=== PATIENT | female | born 1945 | race Caucasian/White ===

== ENCOUNTER → 2018-04-16 14:17 | Outpatient (CLI) | payer MEDICARE, SELFPAY ==
[2018-04-16 16:02] LABS: Thyroid Stim Hormone (TSH) 1.91 uIU/mL (0.358-3.74)
== END ==
PROVIDERS: Family Provider Family Medicine; PCP Family Medicine; Visit Provider Family Medicine
DX: E03.9 Hypothyroidism, unspecified (principal)
CPT/HCPCS: 36415; 84436; 84443

== ENCOUNTER 2018-04-28 14:19 | Inpatient (IN) | payer MEDICARE, SELFPAY ==
[2018-04-28] VITALS (14 sets, daily range): BP systolic 156–218; BP diastolic 65–113; PULSE 58–87; RESP 11–24; TEMP 36.6–36.9; O2SAT 95–98; BMI 31.8; BMI 32.1
--- NOTE | 2018-04-28 14:25 | NURSING ---
NO OLD EKGS
[2018-04-28 14:31] LABS: Bedside Glucose 101 mg/dL (70-110)
--- NOTE | 2018-04-28 15:05 | CT_ITS ---
STUDY: CT BRAIN WITHOUT CONTRAST REASON FOR EXAM: Female, 72 years old. Headache for 2 days dizziness migraines RADIATION DOSAGE (If Supplied By Facility): CTDIvol = ( 44.99 ) mGy, DLP = ( 745.49 ) mGycm TECHNIQUE: Transaxial CT imaging of the brain was performed without administration of intravenous contrast material. Individualized dose optimization techniques were used for this CT. COMPARISON: None. FINDINGS: Normal soft tissue structures. Normal calvarium. There is calcification of the cavernous carotid arteries. There is mild cerebral atrophy with widening of the extra-axial spaces and ventricular dilatation. There are areas of decreased attenuation within the white matter tracts of the supratentorial brain, consistent with microvascular disease changes. There is a punctate low attenuation within the right putamen compatible with old lacunar infarct. Normal brainstem. There is mild cerebellar atrophy. There is no intracranial hemorrhage. There are no findings of an acute ischemic infarction. Normal visualized paranasal sinuses. CT/Brain/Head without Contrast IMPRESSION: Mild atrophy. No visualized evidence of acute hemorrhage infarct or edema. Electronically Signed: Unique Lynch MD at 15:48 EDT Tel , Service support ,
--- NOTE | 2018-04-28 15:05 | EKG12_ITS ---
Test Reason : NEURO Blood Pressure : / mmHG Vent. Rate : 079 BPM Atrial Rate : 079 BPM P-R Int : 176 ms QRS Dur : 086 ms QT Int : 396 ms P-R-T Axes : 060 -32 049 degrees QTc Int : 454 ms Normal sinus rhythm Possible Left atrial enlargement Left axis deviation Poor R wave progression Abnormal ECG Confirmed by ABELINO BENÍTEZ, JOSE ANTONIO ([id number]), editorial project manager KYAW RUIZ ([id number] on 05/01/2018 10:08:56 AM Referred By: Queta Veloz Confirmed By:JOSE ANTONIO ROCA MD
--- NOTE | 2018-04-28 15:11 | ED.VISSUMM ---
- ER Visit Summary Date of Service: 04/28/18 Chief Complaint: Headache, weakness History of Present Illness: The patient is a 72 F who reports onset of migraine headache 5 days ago located behind her eyes. She is a history of migraines but states it has been approximately 20 years since she had a migraine. She reports feeling mild nausea since that time. Headache has been waxing and waning since that time, seeming to improve when she sleeps. She noted a numb sensation to her left leg on the . She states her left arm feels like it is going to fall asleep, but is not numb at this time. She did have some pain to her right face yesterday that is resolved. She now feels a tingling sensation around her lips, worse in the left side. She has not had any trouble swallowing. She denies any problems with her speech. Patient does admit to a fall on the but denies striking her head. Physical Examination: Vital signs in triage include a blood pressure of 218/96, temperature 97.8, heart rate 74, respiratory rate 17, pulse ox 98% on room air. When I enter the room for her exam her blood pressure is 153/80. Head neck examination is grossly unremarkable. She does complain of a black spot over the lateral vision of her left eye only. Pupils are equal and reactive and extraocular movements are intact. Heart is regular rate and rhythm. Lung sounds are clear. Abdomen is soft and nontender. Neuro exam reveals an NIH score of 1. She receives this point for mild drift of her left arm on testing. Test Results: CBC was normal white count with hemoglobin is 16.9 and hematocrit of 48.2. Chemistry studies are significant for BUN of 17 and a creatinine 1.23. Coags normal. CT head shows mild atrophy with no visualized evidence of acute hemorrhage, infarct, or edema. 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 Recommend MRI. CT of the neck shows normal carotid and vertebral arteries. Emergency Department Course and Treatment: Patient's blood pressure has remained in the 150-170 systolic range without any further intervention. I discussed with her the possibility of her symptoms being caused by migraine, blood pressure, or stroke. Patient will be admitted for further workup and evaluation. Treatment Plan: [] Disposition: Admit Impression: 1. Left arm drift 2. Migraine 3. Hypertension This note was generated with Dragon dictation software. It may contain incorrect words, spelling, and punctuation that were not noted in review of the chart prior to signing ED Disposition - Plan for ED Patient: Chief Complaint: Numb/Ting Referrals: Carol Vargas MD [Primary Care Provider] -
[2018-04-28 15:18] LABS: Absolute Neutrophil Count 7.7 X10^3/uL (2.0-7.7); Basophil# 0.03 X10^3/uL; Basophil% 0.3 % (0-1); Eosinophil# 0.08 X10^3/uL; Eosinophils% 0.8 % (0-5); Hematocrit 48.2 % (37-47); Hemoglobin 16.9 g/dl (12.0-15.0); Lymphocyte % 19.3 % (19-41); Mean Corp Hgb Conc 35.1 g/gl (32-36); Mean Corpuscular Hgb 30.7 pg (27.0-32.0); Mean Corpuscular Volume 87.5 fL (81-99); Mean Platelet Vol. 9.7 fl (6.2-12.0); Monocyte# 0.53 X10^3/uL; Monocyte% 5.1 % (0-10); Neutrophil % 74.4 % (47-70); Platelet Count 300 K/mm3 (150-450); RBC Distribution Width CV 12.8 % (11.6-14.6); RBC Distribution Width SD 41.4 fl (35.1-43.9); Red Blood Count 5.51 M/mm3 (4.2-5.4); White Blood Count 10.4 K/mm3 (4.4-11.0)
[2018-04-28 15:19] LABS: POSITIVE COUNT NO; POSITIVE DIFFERENTIAL NO; POSITIVE MORPHOLOGY NO
--- NOTE | 2018-04-28 15:29 | RAD_ITS ---
STUDY: X-RAY CHEST REASON FOR EXAM: Female, 72 years old. Headache TECHNIQUE: Single frontal view of the chest. COMPARISON: None. FINDINGS: There is no focal consolidation. Normal size heart. Normal mediastinum and wilfrid. Normal visualized pulmonary arteries. Normal visualized aortic arch and descending thoracic aorta. There are diffuse degenerative changes of the visualized thoracic spine. Normal visualized ribs, clavicles, and shoulders. There is no demonstrated abnormality of the visualized soft tissue structures of the upper abdomen. RAD/Chest 1 View IMPRESSION: No acute cardiopulmonary process. Electronically Signed: Lisa Siu MD at 16:10 EDT Tel , Service support ,
[2018-04-28 15:33] LABS: Anion Gap 8 (5-15); BUN 17 mg/dL (7-18); BUN/Creat Ratio 13.8 RATIO (10-20); Calcium,Total 9.1 mg/dL (8.5-10.1); Chloride 105 mmol/L (98-107); Creatinine, Serum 1.23 mg/dL (0.55-1.02); EST Glomerular Filtration Rate 45 mL/min (>60); Est Glom Filt Rate - Afr Amer 55 mL/min (>60); Estimated Creatinine Clearance 33.19 ml/min; Glucose 112 mg/dL (74-106); Potassium 3.9 mmol/L (3.5-5.1); Sodium Level 138 mmol/L (136-145)
--- NOTE | 2018-04-28 15:59 | CT_ITS ---
STUDY: CTA NECK WITH CONTRAST REASON FOR EXAM: Female, 72 years old. Sided weakness RADIATION DOSAGE (If Supplied By Facility): CTDIvol = ( 18.39 ) mGy, DLP = ( 721.79 ) mGycm TECHNIQUE: CT angiography with multi-detector data acquisition was performed from the aortic arch to the skull base following intravenous administration of 100 ml of Isovue 370 contrast. MIP images were reconstructed from the axial data set. Post-processing of the angiographic images was performed, with multiplanar reformation and 3D reconstruction. Individualized dose optimization techniques were used for this CT. COMPARISON: None. FINDINGS: AORTIC ARCH: Is minimal calcification of the visualized aortic arch. There is a common takeoff of the left subclavian and vertebral artery. RIGHT CAROTID ARTERIES: There is atherosclerotic tortuous elongation of the right common carotid artery. Normal right common carotid bulb. Normal origin of the right internal carotid (ICA) artery without a hemodynamically significant stenosis. Normal visualized cervical portion of the right internal carotid artery. Normal origin of the right external carotid artery (ECA). LEFT CAROTID ARTERIES: Normal left common carotid artery (CCA). Normal left common carotid bulb. Normal origin of the left internal carotid (ICA) artery without a hemodynamically significant stenosis. Normal visualized cervical portion of the left internal carotid artery. Normal origin of the left external carotid artery (ECA). VERTEBRAL ARTERIES: Normal bilateral vertebral arteries. There is visualized multilevel degenerative changes in the cervical spine. There is multilevel posterior ligamentous osteophyte formation with effacement of the anterior thecal sac. Especially seen at the level of C4. There is a broad disc osteophyte complex C5-C6 with moderate neural foraminal narrowing. There is posterior osteophytosis C5-C6. There is visualized groundglass opacity within the lung apices. CT/CTA Neck W/WO Contrast IMPRESSION: Normal bilateral cervical carotid and vertebral arteries. Degenerative change of the cervical spine. Electronically Signed: Unique Lynch MD at 17:28 EDT Tel , Service support ,
[2018-04-28 16:12] LABS: International Normalized Ratio 1.1; Prothrombin Time (Protime)PT. 13.9 SECONDS (11.7-14.9)
[2018-04-28 16:13] LABS: Partial Thromboplast Time 27.7 Seconds (24.1-36.2)
[2018-04-28] MEDS: 0.9% Normal Saline 1,000 ML 100 ML IV (16:14)
--- NOTE | 2018-04-28 16:35 | CT_ITS ---
STUDY: CTA OF THE BRAIN REASON FOR EXAM: Female, 72 years old. Left-sided weakness dizziness RADIATION DOSAGE (If Supplied By Facility): CTDIvol = ( ) mGy, DLP = ( ) mGycm TECHNIQUE: CT angiography was performed with a multi-detector CT scanner. Data acquisition was obtained from the skull base through the vertex following intravenous administration of ml of . MIP images were reconstructed from the axial data set. Post-processing of the angiographic images was performed, with multiplanar reformation and 3D reconstruction. Individualized dose optimization techniques were used for this CT. COMPARISON: CT scan head April 28, 2018 FINDINGS: Normal bilateral petrous carotid arteries. There is calcified plaque formation of the right cavernous carotid artery, without a cross-sectional luminal stenosis. There is calcified plaque formation of the left cavernous carotid artery, without a cross-sectional luminal stenosis. Normal right A1 segments of the anterior cerebral artery. Normal left A1 segments of the anterior cerebral artery. There is non-visualization of the anterior communicating artery (ACOM). Normal bilateral A2 segments of the anterior cerebral arteries. Normal right M1 and M2 segments of the middle cerebral arteries, with a normal M1 bifurcation. Normal left M1 and M2 segments of the middle cerebral arteries, with a normal M1 bifurcation. Normal right posterior communicating artery (PCOM). Normal left posterior communicating artery (PCOM). Normal bilateral vertebral arteries. Normal basilar artery with a normal basilar bifurcation. The visualized bilateral superior cerebellar (SCA) arteries are normal. The mid segment of the right side SOCIAL INSURANCE ADMINISTRATOR is either hypoplastic and not well visualized on 3-D reconstructed images. The proximal SOCIAL INSURANCE ADMINISTRATOR and distal right-sided PTC is visualized. There is a diminutive but patent appearing left-sided SOCIAL INSURANCE ADMINISTRATOR. There is no demonstrated aneurysm of the [place]. There is no demonstrated abnormality of the visualized brain. CT/CTA Head W/WO Contrast IMPRESSION: Hypoplastic versus possible mild stenosis of the mid right-sided SOCIAL INSURANCE ADMINISTRATOR. Given clinical history recommend consideration for follow-up MRI. Otherwise no evidence of visualized stenotic lesion no evidence of aneurysmal dilatation. Electronically Signed: Unique Lynch MD at 17:20 EDT Tel , Service support ,
--- NOTE | 2018-04-28 17:47 | HP.PCM_ITS ---
Problem List (1) Headache Status: Acute History of Present Illness Date of Admission: 04/28/18 Chief Complaint: headache The patient is a 72 year old F with a history of hypothyroidism and migraines. She last had a migraine about 15 years ago. She was admitted through the ED on 04/28/2018 with a complaint of 4-day history of headache. Headache was left- sided, associated with flashes of light. She thought was due to her migraine headaches and would get better. However the headache persisted and so she decided coming to the ED today. She denied any neck pain or photophobia, any chest pain, any blurred vision, any palpitations, any abdominal pain, any diarrhea vomiting. In the ED, blood pressure was found to be elevated, 218/96. Brain CT was negative for any acute intracranial pathology. Chemistry was significant for creatinine of 1.23 and CBC showed hemoglobin of 16.9. She is been admitted to be managed for hypertensive emergency. 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 Denies: Blurred vision, Double vision HEENT: Denies: Head Aches, Sinus Congestion, Sinus Drainage Cardiovascular: Denies: Chest Pain, Chest Pressure, Chest Tightness, Orthopnea, Palpitations, Paroxysmal Noc. Dyspnea, Syncope Respiratory: Denies: Cough, Shortness of breath at rest, Sputum production Gastrointestinal: Denies: Abdominal Pain, Nausea, Vomiting Genitourinary: Denies: Dysuria Musculoskeletal: Denies: Joint Pain, Joint Tenderness Skin: Denies: Rash, Wounds Neurological: Reports: Headaches - left sided. Denies: Blurred vision, Double vision, Focal weakness, Numbness, Tingling Psychiatric: Denies: Anxiety, Depression, Homicidal Ideations, Suicidal Ideations Hematologic/ Lymphatic: Denies: Easy Bruising, Easy Bleeding VTE Information - Inpt Only VTE Present on Admission: No VTE Pharm Prophylaxis ordered?: Yes Patient Problems: Active and Suspected Problems Headache (Acute) - Physical Exam General: Alert, Oriented x3, Cooperative, No apparent distress HEENT: Atraumatic, PERRLA, EOMI, Normocephalic Oral: Moist Mucosa Neck: Supple, No JVD, Negative Carotid Bruits Lungs: Clear to auscultation, Normal air movement, No rhonchi, No wheeze, No rales Cardiovascular: Regular rate, Regular Rhythm, Normal S1, Normal S2, No murmurs Abdomen: Bowel Sounds Present, Soft, Non Tender, Non-Distended, No Hepato- splenomegaly Extremities: No clubbing, No cyanosis, No edema, Capillary Refill Less than 3 Seconds Skin: No rashes, No breakdown Musculoskeletal: No Tenderness to Palpation of Joints or Extremities Lymphatic: No Cervical, Supraclavicular, or Inguinal Adenopathy Neurological: Cranial nerves II-XII grossly intact, Neuro grossly intact, Motor Exam 5/5 strength throughout Psych/Mental Status: Normal Affect, Appropriate, Alert and oriented to time, place, person, mood and affect Vital Signs Temp Pulse Resp BP Pulse Ox 97.8 F 83 24 H 167/78 H 96 04/28/18 14:21 04/28/18 16:30 04/28/18 16:30 04/28/18 16:30 04/28/18 16:30 Oxygen Delivery Method Room Air Weight: 179 lb 14.355 oz Body Mass Index (BMI) 31.8 Finger Stick Blood Glucose 101 Laboratory Tests Past 24 Hrs 04/28/18 04/28/18 04/28/18 14:45 14:45 14:45 WBC 10.4 RBC 5.51 H Hgb 16.9 H Hct 48.2 H MCV 87.5 MCH 30.7 MCHC 35.1 RDW 12.8 RDW Differential 41.4 Plt Count 300 MPV 9.7 Immature Gran % (Auto) 0.100 Neut % (Auto) 74.4 H Lymph % (Auto) 19.3 [place] % (Auto) 5.1 Eos % (Auto) 0.8 Baso % (Auto) 0.3 Absolute Neuts (auto) 7.7 Absolute Lymphs (auto) 2.00 Total Counted Not Reportable PT 13.9 INR 1.1 APTT 27.7 Sodium 138 Potassium 3.9 Chloride 105 Carbon Dioxide 25.0 Anion Gap 8 BUN 17 Creatinine 1.23 H Estim Creat Clear Calc 33.19 Est GFR (MDRD) Af Amer 55 L Est GFR (MDRD) Non-Af 45 L BUN/Creatinine Ratio 13.8 Glucose 112 H Calcium 9.1 Troponin I < 0.015 POC Glucose 04/28/18 14:27 POC Glucose [address] 04/28/18 15:05 IMPRESSION: Mild atrophy. No visualized evidence of acute hemorrhage infarct or edema. Electronically Signed: Unique Lynch MD at 15:48 EDT Tel , Service support , Chest X-Ray 04/28/18 15:29 IMPRESSION: No acute cardiopulmonary process. Electronically Signed: Lisa Siu MD at 16:10 EDT Tel , Service support , Neck CTA 04/28/18 15:59 IMPRESSION: Normal bilateral cervical carotid and vertebral arteries. Degenerative change of the cervical spine. 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 Given clinical history recommend consideration for follow-up MRI. Otherwise no evidence of visualized stenotic lesion no evidence of aneurysmal dilatation. Electronically Signed: Unique Lynch MD at 17:20 EDT Tel , Service support , Assessment/Plan All Active Problems Headache (Acute) 72-year-old female admitted with a complaint of 4-day history of left-sided headache. 1. Hypertensive emergency * admitted with elevated BP which peaked at 218/96mmhg * hasnt had a migrained headache in >10 years. * EKG showed no acute ST changes * CXR showed no acute cardiopulmonary process. * admit to PCU with telemetry * BP had come down to 167/79 at time of review * not on any hypertensives. * Will start on PO amlodipine 10mg daily and lisinopril 10mg daily * get 2D echo. * IV hydralazine 10mg q6prn * 2. Migraine headaches * Has not had a migraine headache and so many years. * CT brain: Mild atrophy with no visualized evidence of acute hemorrhage, infarct or edema. * CTA of the neck: Hypoplastic versus possible mild stenosis of the mid right MIXING MACHINE TENDER. MRI recommended. Otherwise no other lesion noted. * Give Tylenol as needed * 3. AK I: Creatinine is 1.23. Baseline not known. Will hydrate with half- normal saline and monitor. 4. Hypothyroidism: on synthroid. DVT prophylaxis: heparin Code status: * Patient and counseled extensively about different types of CODE STATUS including full code, DNR CCA and DNR CCA. Patient couldnt make up her mind about her code status, as she stated she had never thought about it. She said she didnt think she wanted to be resuscitated, but couldnt decide between DNRCC and DNRCCA. Wants more time to think about it and decide. Total [id number] time 20 minutes. Code Visit Inpatient E&M: 74265 Init Hosp L3 Procedures: 97270 Advncd Care Plan 30 Min
--- NOTE | 2018-04-28 17:48 | NURSING ---
DR MORGAN FOR DR KERN
--- NOTE | 2018-04-28 17:48 | NURSING ---
PCU MIGRAINE, HYPERTENSIVE EMERGENCY KORAM
[2018-04-28] MEDS: Lisinopril 10 MG Tablet PO (19:46)
[2018-04-28] MEDS: amLODIPine 10 MG Tablet PO (19:46)
[2018-04-28] MEDS: 0.45% Normal Saline 1,000 ML 60 ML IV (19:47)
[2018-04-28] MEDS: 0.9% NaCl Peripheral Flush Adult/Peds IV (21:20)
[2018-04-28] MEDS: Heparin Injection (Vial) 5,000 UNIT/ML VIAL 5000 UNIT SC (21:20)
[2018-04-29] VITALS (10 sets, daily range): BP systolic 114–145; BP diastolic 54–67; PULSE 56–75; RESP 15–18; TEMP 36.7–36.9; O2SAT 94–96
[2018-04-29] MEDS: Levothyroxine 50 MCG Tablet PO (05:02)
[2018-04-29] MEDS: Heparin Injection (Vial) 5,000 UNIT/ML VIAL 5000 UNIT SC ×3 (05:02→22:19)
[2018-04-29 07:07] LABS: Absolute Lymphocyte Count 3.17 X10^3/ul (0.83-4.51); Absolute Neutrophil Count 6.8 X10^3/uL (2.0-7.7); Basophil# 0.03 X10^3/uL; Basophil% 0.3 % (0-1); Eosinophil# 0.12 X10^3/uL; Eosinophils% 1.1 % (0-5); Hematocrit 44.4 % (37-47); Hemoglobin 14.9 g/dl (12.0-15.0); Lymphocyte # 3.17 X10^3/ul (4.0); Lymphocyte % 29.6 % (19-41); Mean Corp Hgb Conc 33.6 g/gl (32-36); Mean Corpuscular Volume 89.5 fL (81-99); Monocyte# 0.62 X10^3/uL; Monocyte% 5.8 % (0-10); Neutrophil # 6.75 X10^3/uL (2.7-7.7); Neutrophil % 63.1 % (47-70); Platelet Count 271 K/mm3 (150-450); RBC Distribution Width SD 41.9 fl (35.1-43.9); Red Blood Count 4.96 M/mm3 (4.2-5.4); White Blood Count 10.7 K/mm3 (4.4-11.0)
[2018-04-29 07:15] LABS: POSITIVE COUNT NO; POSITIVE DIFFERENTIAL NO; POSITIVE MORPHOLOGY NO
[2018-04-29 07:44] LABS: Anion Gap 12 (5-15); BUN 14 mg/dL (7-18); BUN/Creat Ratio 14.1 RATIO (10-20); Calcium,Total 8.7 mg/dL (8.5-10.1); Chloride 107 mmol/L (98-107); EST Glomerular Filtration Rate 58 mL/min (>60); Est Glom Filt Rate - Afr Amer 70 mL/min (>60); Estimated Creatinine Clearance 40.83 ml/min; Glucose 74 mg/dL (74-106); Potassium 3.8 mmol/L (3.5-5.1); Sodium Level 142 mmol/L (136-145)
[2018-04-29 07:58] LABS: Cholesterol 287 mg/dL (200); High Density Lipoprotein 41 mg/dL; Triglycerides 132 mg/dL; Very Low Density Lipoprotein 26 mg/dL (5-40)
[2018-04-29] MEDS: Omega-3 Acid Ethyl Esters 1 GM Capsule PO (09:06)
[2018-04-29] MEDS: Lisinopril 10 MG Tablet PO (09:06)
[2018-04-29] MEDS: amLODIPine 10 MG Tablet PO (09:06)
--- NOTE | 2018-04-29 12:07 | PCM.PN.HOSP ---
Patient Problems: Active and Suspected Problems Headache (Acute) Subjective: Patient was seen and examined. Her headache is much improved. Denies any dizziness or chest pain or palpitations. Reviewed, blood pressure much improved. Vitals/I&O's: Vital Signs Temp Pulse Resp BP Pulse Ox 98.1 F 64 18 128/61 H 95 04/29/18 08:58 04/29/18 11:22 04/29/18 08:58 04/29/18 08:58 04/29/18 08:58 Oxygen Delivery Method Room Air Weight: 82.214 kg Body Mass Index (BMI) 32.1 Finger Stick Blood Glucose 101 Intake and Output for Last 24 Hours 04/27/18 04/28/18 04/29/18 23:59 23:59 23:59 Intake Total 255 / 255 351 / 351 Output Total 500 / 500 150 / 150 Balance -245 / -245 201 / 201 General: Alert, Oriented x3, Cooperative, No apparent distress HEENT: Atraumatic, PERRLA, EOMI, Normocephalic, - - Area of tenderness around the right temporal region, but patient states is improving Oral: Moist Mucosa Neck: Supple, No JVD, Negative Carotid Bruits Lungs: Clear to auscultation, Normal air movement Cardiovascular: Regular rate, Regular Rhythm, Normal S1, Normal S2, No murmurs Abdomen: Bowel Sounds Present, Soft, Non Tender, Non-Distended, No Hepato-splenomegaly Extremities: No edema Skin: No rashes, No breakdown Musculoskeletal: No Tenderness to Palpation of Joints or Extremities Lymphatic: No Cervical, Supraclavicular, or Inguinal Adenopathy Neurological: Cranial nerves II-XII grossly intact Psych/Mental Status: Normal Affect, Appropriate Laboratory Results 04/28/18 14:27: POC Glucose 101 04/28/18 14:45: WBC 10.4, RBC 5.51 H, Hgb 16.9 H, Hct 48.2 H, MCV 87.5, MCH 30.7, MCHC 35.1, RDW 12.8, RDW Differential 41.4, Plt Count 300, MPV 9.7, Immature Gran % (Auto) 0.100, Neut % (Auto) 74.4 H, Lymph % (Auto) 19.3, [place] % (Auto) 5.1, Eos % (Auto) 0.8, Baso % (Auto) 0.3, Absolute Neuts (auto) 7.7, Absolute Lymphs (auto) 2.00, Total Counted Not Reportable 04/28/18 14:45: PT 13.9, INR 1.1, APTT 27.7 04/28/18 14:45: Sodium 138, Potassium 3.9, Chloride 105, Carbon Dioxide 25.0, Anion Gap 8, BUN 17, Creatinine 1.23 H, Estim Creat Clear Calc 33.19, Est GFR (MDRD) Af Amer 55 L, Est GFR (MDRD) Non-Af 45 L, BUN/Creatinine Ratio 13.8, Glucose 112 H, Calcium 9.1, Troponin I < 0.015 04/28/18 14:45: Hemoglobin A1c 6.0 04/29/18 06:00: Triglycerides 132, Cholesterol 287 H, LDL Cholesterol 220 H, VLDL Cholesterol 26, HDL Cholesterol 41 04/29/18 06:00: Sodium 142, Potassium 3.8, Chloride 107, Carbon Dioxide 23.0, Anion Gap 12, BUN 14, Creatinine 1.00, Estim Creat Clear Calc 40.83, Est GFR (MDRD) Af Amer 70, Est GFR (MDRD) Non-Af 58 L, BUN/Creatinine Ratio 14.1, Glucose 74, Calcium 8.7 04/29/18 06:00: WBC 10.7, RBC 4.96, Hgb 14.9, Hct 44.4, MCV 89.5, MCH 30.0, MCHC 33.6, RDW 13.0, RDW Differential 41.9, Plt Count 271, MPV 10.0, Immature Gran % (Auto) 0.100, Neut % (Auto) 63.1, Lymph % (Auto) 29.6, Branch % (Auto) 5.8, Eos % (Auto) 1.1, Baso % (Auto) 0.3, Absolute Neuts (auto) 6.8, Absolute Lymphs (auto) 3.17, Total Counted Not Reportable Current Medications Acetaminophen (Tylenol) 650 mg PO Q6H PRN PRN PRN Reason: HEADACHE Amlodipine Besylate (Norvasc) 10 mg PO DAILY [facility] Last Admin: 04/29/18 09:06 Dose: 10 mg Heparin Sodium (Porcine) (Heparin Na) 5,000 unit SC Q8 [facility] Last Admin: 04/29/18 05:02 Dose: 5,000 unit Hydralazine HCl (Apresoline Iv) 10 mg IV Q6H PRN PRN PRN Reason: BLOOD PRESSURE ELEVATION Levothyroxine Sodium (Synthroid) 50 mcg PO DAILY@0600 [facility] Last Admin: 04/29/18 05:02 Dose: 50 mcg Lisinopril (Zestril) 10 mg PO DAILY [facility] Last Admin: 04/29/18 09:06 Dose: 10 mg Magnesium Hydroxide (Milk Of Magnesia) 30 ml PO DAILY PRN PRN PRN Reason: Constipation Qivgk-[id number] Ethyl Esters (Lovaza) 1 gm PO DAILY [facility] Last Admin: 04/29/18 09:06 Dose: 1 gm Sodium Chloride () 5 - 30 ml IV UD PRN PRN Reason: SALINE FLUSH Last Admin: 04/28/18 21:20 Dose: 10 ml Medical Necessity - Tobacco Use Smoking Status: Former smoker Assessment/Plan All Active Problems Headache (Acute) 72-year-old female past medical history of hypothyroidism, migraines comes in with complaints of acute headache and found to have elevated blood pressure with systolic more than 200. 1. Accelerated hypertension/hypertensive emergency, improved, that on amlodipine, lisinopril We will continue to monitor on same Follow-up on 2D echo 2. MELIDA, unclear baseline, improved with hydration, creatinine was 1.23 on admission, improved to 1.0, will recheck in a.m. 3. Migraine headaches, improved 4. Hypothyroidism, on levothyroxine 5. DVT prophylaxis - Heparin SC 6. Disposition: Possible DC in a.m. if blood pressure remains controlled and 2D echo is unremarkable Code Visit Inpatient E&M: 04543 Subs Hosp L2
[2018-04-30] VITALS (12 sets, daily range): BP systolic 97–142; BP diastolic 57–68; PULSE 53–78; RESP 16–18; TEMP 36.4–37.2; O2SAT 94–97; BMI 32.1
[2018-04-30] MEDS: Levothyroxine 50 MCG Tablet PO (06:20)
[2018-04-30] MEDS: Heparin Injection (Vial) 5,000 UNIT/ML VIAL 5000 UNIT SC ×3 (06:20→21:56)
[2018-04-30 06:40] LABS: Anion Gap 10 (5-15); BUN 25 mg/dL (7-18); Calcium,Total 8.4 mg/dL (8.5-10.1); Chloride 108 mmol/L (98-107); Creatinine, Serum 1.19 mg/dL (0.55-1.02); EST Glomerular Filtration Rate 47 mL/min (>60); Est Glom Filt Rate - Afr Amer 57 mL/min (>60); Estimated Creatinine Clearance 34.31 ml/min; Glucose 106 mg/dL (74-106); Potassium 3.8 mmol/L (3.5-5.1); Sodium Level 140 mmol/L (136-145)
--- NOTE | 2018-04-30 08:00 | ECHOCS_ITS ---
[id number] ECHO^ECHOCS^Echo Complete W/ Contrast [id number] TAG_START Cardiovascular Services Echocardiogram [facility] [place] [address] Ordering Physician: Queta Veloz TAG_ENDED TAG_START Name: DANNY NICKERSON Study Date: 04/30/2018 01:22 PM BP: 125/66 mmHg Patient Location: [facility]^[id number]^1 BSA: 1.8 m2 : 1945 Gender: Female Height: 63 in Age: 72 yrs Weight: 177 lb History: HTN, Hypothyroid, Former Smoker TAG_ENDED Reason For Study: HTN Procedure This was a 2D Doppler, Color Flow transthoracic echocardiogram. Contrast injection was performed. Exam performed portable in patient room. Left Ventricle Mild concentric left ventricular hypertrophy. The estimated ejection fraction is 65 %. Stage 1 diastolic dysfunction. No regional wall motion abnormalities noted. TAG_START I Segments Size 1-2 small X - Cannot 1 - Normal 2 - 3 - Akinetic 4 - Dyskinetic3-5 moderate Interpret Hypokinetic 6-14 large 5 - Aneurysmal 15-16 diffuse TAG_ENDED Right Ventricle Normal size and thickness. Normal systolic function. Atria Normal left atrium. Normal right atrium. Normal atrial septum. Bubble contrast study negative for right to left interatrial shunt. Mitral Valve The mitral valve is structurally normal. No prolapse or stenosis seen. Trivial mitral valve insufficiency. Tricuspid Valve Normal tricuspid valve. Trivial tricuspid valve insufficiency. Right ventricular systolic pressure estimated to be 31 mmHg. Aortic Valve Trisinus/trileaflet aortic valve. Pulmonic Valve Normal pulmonic valve. Great Vessels Normal aortic root. Normal arch. Normal inferior vena cava. Inferior vena cava collapse with sniff. Pericardium/Pleural No pericardial effusion. Medication Diluted definity 2ml given slow IV push to enhance endocardial definition. Performed a rapid injection of agitated mix of 9 cc saline and 1cc air to assess for atrial septal defect. MMode/2D Measurements & Calculations LVIDd: 4.2 cm IVSd: 1.2 cm Ao root diam: 3.2 cm LVIDs: 2.1 cm LVPWd: 1.5 cm LA dimension: 3.4 cm FS: 49.2 % LAV(MOD-bp): 38.9 ml LA A4 area: 15.8 cm2 LAV(MOD-bp) Indexed: 21.2 ml/m2 LAV(MOD-sp2): 36.4 ml LAV(MOD-sp4): 40.8 ml Time Measurements MV dec time: 0.22 sec Doppler Measurements & Calculations MV E max jesus: 84.9 cm/sec Lat Peak E' Jesus: 6.1 cm/sec Med Peak E' Jesus: 7.6 cm/sec MV A max jesus: 124.8 cm/sec E/E' lat: 14.0 E/E' med: 11.2 MV E/A: 0.68 MV V2 max: 138.7 cm/sec MV P1/2t max jesus: 117.5 cm/sec Ao V2 max: 165.6 cm/sec MV max P.7 mmHg MV P1/2t: 68.7 msec Ao max P.0 mmHg MV V2 mean: 58.0 cm/sec MV dec slope: 500.9 cm/sec2 Ao V2 mean: 107.3 cm/sec MV mean P.8 mmHg MVA(P1/2t): 3.2 cm2 Ao mean P.3 mmHg MV V2 VTI: 36.9 cm Ao V2 VTI: 34.6 cm LV V1 max: 115.1 cm/sec PA V2 max: 79.0 cm/sec TR max jesus: 253.7 cm/sec LV V1 max P.3 mmHg TR max P.8 mmHg LV V1 mean P.7 mmHg LV V1 mean: 76.0 cm/sec LV V1 VTI: 26.7 cm Interpretation Summary Mild concentric left ventricular hypertrophy. The estimated ejection fraction is 65 %. Stage 1 diastolic dysfunction. Trivial tricuspid valve insufficiency. Right ventricular systolic pressure estimated to be 31 mmHg. Trivial mitral valve insufficiency. Bubble contrast study negative for right to left interatrial shunt. There is no comparison study available. Contrast injection was performed. TAG_START TAG_ENDED Ordering Physician: Queta Veloz Referring Physician: Queta Veloz Performed By: Cheng Jarvis RCS
--- NOTE | 2018-04-30 08:30 | MRI_ITS ---
STUDY: MRI BRAIN WITHOUT CONTRAST REASON FOR EXAM: Female, 72 years old. headache, lt sided numbness,weak. TECHNIQUE: Standardized multiplanar fat and water weighted pulse sequences were obtained. # of Images: 275 COMPARISON: April 28, 2018 FINDINGS: Normal size of the ventricles and extra-axial spaces for the patient's age. There are a limited number of small white matter hyperintensities, distributed throughout the deep white matter tracts of the cerebral hemispheres, consistent with mild chronic white matter ischemic changes. There is a 2 cm area of restricted diffusion involving the right occipital lobe. There are foci of restricted diffusion of the right thalamus and hippocampus as well. There is drop of signal on ADC map, consistent with acute infarctions. There is a left thalamic chronic likely lacunar infarct as well. Normal bilateral basal ganglia. There is no extra-axial fluid accumulation. Normal flow voids within the major intracranial circulation suggesting patency by spin echo criteria. Normal sella turcica, pituitary gland, infundibular stalk, optic chiasm and hypothalamus. Normal tectal plate and pineal gland. Normal midbrain, clement and medulla. Normal cerebellum. Normal basal cisterns. Normal bilateral temporal bones. Normal bilateral internal auditory canals. MRI/Brain without Contrast IMPRESSION: Acute right occipital and thalamic infarctions. N.B. : The above information has been verbally conveyed by Kash Hernández MD to Anh Jimenez RN, RN, on 04/30/2018 10:45:10 (ET). Electronically Signed: Kash Hernández MD at 9:52 EDT Tel , Service support ,
[2018-04-30] MEDS: amLODIPine 10 MG Tablet PO (10:00)
[2018-04-30] MEDS: Omega-3 Acid Ethyl Esters 1 GM Capsule PO (10:00)
[2018-04-30] MEDS: Lisinopril 10 MG Tablet PO (10:00)
--- NOTE | 2018-04-30 10:47 | PN_ITS ---
Patient Problems: Active and Suspected Problems Headache (Acute) Subjective: Patient was seen and examined. She complains of intermittent numbness in the left side of her lips as well as upper extremity. Did not tell me this yesterday. She said it was because it comes and goes. He however denies any dizziness or palpitations or shortness of breath MRI of the brain showed right acute/subacute thalamic infarct, right acute occipital infarct Vitals/I&O's: Vital Signs Temp Pulse Resp BP Pulse Ox 98.2 F 57 L 18 122/66 H 97 04/30/18 09:44 04/30/18 09:44 04/30/18 09:44 04/30/18 09:44 04/30/18 09:44 Oxygen Delivery Method Room Air Weight: 82.214 kg Body Mass Index (BMI) 32.1 Finger Stick Blood Glucose 101 Intake and Output for Last 24 Hours 04/28/18 04/29/18 04/30/18 23:59 23:59 23:59 Intake Total 255 / 255 1071 / 1071 Output Total 500 / 500 550 / 550 150 / 150 Balance -245 / -245 521 / 521 -150 / -150 General: Alert, Oriented x3, Cooperative, No apparent distress HEENT: Atraumatic, PERRLA, EOMI, Normocephalic Oral: Moist Mucosa Neck: Supple, No JVD, Negative Carotid Bruits Lungs: Clear to auscultation, Normal air movement Cardiovascular: Regular rate, Regular Rhythm, Normal S1, Normal S2, No murmurs Abdomen: Bowel Sounds Present, Soft, Non Tender, Non-Distended, No Hepato- splenomegaly Extremities: No edema Skin: No rashes, No breakdown Musculoskeletal: No Tenderness to Palpation of Joints or Extremities Lymphatic: No Cervical, Supraclavicular, or Inguinal Adenopathy Neurological: Cranial nerves II-XII grossly intact, Neuro grossly intact Psych/Mental Status: Normal Affect, Appropriate Laboratory Results 04/30/18 05:42: Sodium 140, Potassium 3.8, Chloride 108 H, Carbon Dioxide 22.0, Anion Gap 10, BUN 25 H, Creatinine 1.19 H, Estim Creat Clear Calc 34.31, Est GFR (MDRD) Af Amer 57 L, Est GFR (MDRD) Non-Af 47 L, BUN/Creatinine Ratio 21.0 H, Glucose 106, Calcium 8.4 L Current Medications Acetaminophen (Tylenol) 650 mg PO Q6H PRN PRN PRN Reason: HEADACHE Amlodipine Besylate (Norvasc) 10 mg PO DAILY [facility] Last Admin: 04/30/18 10:00 Dose: 10 mg Clopidogrel Bisulfate (Plavix) 75 mg PO DAILY [facility] Heparin Sodium (Porcine) (Heparin Na) 5,000 unit SC Q8 [facility] Last Admin: 04/30/18 06:20 Dose: 5,000 unit Hydralazine HCl (Apresoline Iv) 10 mg IV Q6H PRN PRN PRN Reason: BLOOD PRESSURE ELEVATION Levothyroxine Sodium (Synthroid) 50 mcg PO DAILY@0600 [facility] Last Admin: 04/30/18 06:20 Dose: 50 mcg Lisinopril (Zestril) 10 mg PO DAILY [facility] Last Admin: 04/30/18 10:00 Dose: 10 mg Magnesium Hydroxide (Milk Of Magnesia) 30 ml PO DAILY PRN PRN PRN Reason: Constipation [id number] Ethyl Esters (Lovaza) 1 gm PO DAILY [facility] Last Admin: 04/30/18 10:00 Dose: 1 gm Pravastatin Sodium (Pravachol) 80 mg PO QHS [facility] Sodium Chloride () 5 - 30 ml IV UD PRN PRN Reason: SALINE FLUSH Last Admin: 04/28/18 21:20 Dose: 10 ml Medical Necessity - Tobacco Use Smoking Status: Former smoker Assessment/Plan All Active Problems Headache (Acute) 72-year-old female past medical history of hypothyroidism, migraines comes in with complaints of acute headache and found to have elevated blood pressure with systolic more than 200. 1. Acute/subacute right thalamic infarct, right acute occipital infarct, noted on MRI of the brain, started on Plavix, intolerant of aspirin, continue on statin, Neurology consulted, 2D-ECHO pending, HgbA1c pending, PT/OT/ST to evaluate 2. Accelerated hypertension/hypertensive emergency, improved, will hold amlodipine, lisinopril to allow for permissive hypertensive now 3. MELIDA, unclear baseline, remains around 1.19, BMP in am 4. Migraine headaches, improved 5. Hypothyroidism, on levothyroxine 6. DVT prophylaxis - Heparin SC Code Visit Inpatient E&M: 92250 Subs Hosp L2
--- NOTE | 2018-04-30 11:13 | PCM.CONS.GEN ---
Reason for Consult Date of Consultation: 04/30/18 Reason for Consultation: cva History of Present Illness: The patient is a 72 year old F right handed white female who two weeks ago noted left arm abormal sensation. two days ago noted left vision changes associated with headache and elevated blood pressure. couldnt tolerate asa in the past due to gi upset. no tobacco, quit 50yrs ago. admits to snoring. admits to EDS. naps approximately 3-4x/week. also had headache, now improved. The patient is a 72 year old F with a history of hypothyroidism and migraines. She last had a migraine about 15 years ago. She was admitted through the ED on 04/28/2018 with a complaint of 4-day history of headache. Headache was left-sided, associated with flashes of light. She thought was due to her migraine headaches and would get better. However the headache persisted and so she decided coming to the ED today. She denied any neck pain or photophobia, any chest pain, any blurred vision, any palpitations, any abdominal pain, any diarrhea vomiting. In the ED, blood pressure was found to be elevated, 218/96. Brain CT was negative for any acute intracranial pathology. Chemistry was significant for creatinine of 1.23 and CBC showed hemoglobin of 16.9. She is been admitted to be managed for hypertensive emergency. 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 Lives: Spouse/ Significant Other Smoking Status: Former smoker Alcohol: None - *Family History Maternal History Items: Hypertension Paternal History Items: No pertinent history Review of Systems Constitutional: Denies: Chills, Fever, Weight Change HEENT: Denies: Head Aches, Sinus Congestion, Sinus Drainage Cardiovascular: Denies: Chest Pain, Palpitations Respiratory: Denies: Cough, Shortness of breath at rest, Sputum production Gastrointestinal: Denies: Abdominal Pain, Nausea, Vomiting Genitourinary: Denies: Dysuria Musculoskeletal: Denies: Joint Pain, Joint Tenderness Skin: Denies: Rash, Wounds Neurological: Denies: Numbness, Tingling, Focal weakness Psychiatric: Denies: Anxiety, Depression, Homicidal Ideations, Suicidal Ideations Hematologic/ Lymphatic: Denies: Easy Bruising, Easy Bleeding Patient Problems: Active and Suspected Problems Headache (Acute) - Physical Exam General: Alert, Oriented x3, Cooperative, No apparent distress HEENT: Atraumatic, PERRLA, EOMI Musculoskeletal: No Tenderness to Palpation of Joints or Extremities Neurological: Cranial nerves II-XII grossly intact, Deep Tendon Reflexes 2+/4 and Symmetrical, Neuro grossly intact, Motor Exam 5/5 strength throughout, Sensory exam intact to light touch and pain, Coordination normal, Gait narrow based and stable Psych/Mental Status: Normal Affect, Appropriate Vital Signs Temp Pulse Resp BP Pulse Ox 36.8 C 57 L 18 122/66 H 97 04/30/18 09:44 04/30/18 09:44 04/30/18 09:44 04/30/18 09:44 04/30/18 09:44 Oxygen Delivery Method Room Air Weight: 82.214 kg Body Mass Index (BMI) 32.1 Finger Stick Blood Glucose 101 Intake and Output for Last 24 Hours 04/28/18 04/29/18 04/30/18 23:59 23:59 23:59 Intake Total 255 / 255 1071 / 1071 Output Total 500 / 500 550 / 550 150 / 150 Balance -245 / -245 521 / 521 -150 / -150 Laboratory Tests Past 24 Hrs 04/30/18 05:42 Sodium 140 Potassium 3.8 Chloride 108 H Carbon Dioxide 22.0 Anion Gap 10 BUN 25 H Creatinine 1.19 H Estim Creat Clear Calc 34.31 Est GFR (MDRD) Af Amer 57 L Est GFR (MDRD) Non-Af 47 L BUN/Creatinine Ratio 21.0 H Glucose 106 Calcium 8.4 L Current Home Med List Medication Instructions Recorded Confirmed Type Calcium Lactate 84 mg PO DAILY 04/28/18 04/28/18 History Levothyroxine [Synthroid] 50 mcg PO DAILY 04/28/18 04/28/18 History [place]-3 Fatty Acids/Fish Oil [Fish 1 each PO DAILY 04/28/18 04/28/18 History Oil 1,000 mg Capsule] [place] 250 mg PO DAILY 04/29/18 04/29/18 History B Complex C No.10/Folic Acid 900 mcg PO DAILY 04/29/18 04/29/18 History [Nephronex Liquid] Current Medications Acetaminophen 650 mg 04/28/18 19:12 Tylenol PO Q6H PRN PRN HEADACHE Amlodipine Besylate 10 mg 04/28/18 19:12 04/30/18 10:00 Norvasc PO 10 mg DAILY [facility] Administration Clopidogrel Bisulfate 75 mg 04/30/18 10:00 Plavix PO DAILY [facility] Heparin Sodium (Porcine) 5,000 unit 04/28/18 22:00 04/30/18 06:20 Heparin Na SC 5,000 unit Q8 [facility] Administration Hydralazine HCl 10 mg 04/28/18 19:12 Apresoline Iv IV Q6H PRN PRN BLOOD PRESSURE ELEVATION Levothyroxine Sodium 50 mcg 04/29/18 06:00 04/30/18 06:20 Synthroid PO 50 mcg DAILY@0600 [facility] Administration Lisinopril 10 mg 04/28/18 19:12 04/30/18 10:00 Zestril PO 10 mg DAILY [facility] Administration Magnesium Hydroxide 30 ml 04/28/18 19:12 Milk Of Magnesia PO DAILY PRN PRN Constipation Rjunw-0-Jacl Ethyl Esters 1 gm 04/29/18 10:00 04/30/18 10:00 Lovaza PO 1 gm DAILY [facility] Administration Pravastatin Sodium 80 mg 04/30/18 10:42 Pravachol PO QHS [facility] mri reviewed, right acute/subacute thalamic infarct, right acute occipital infarct cta reviwed, no stenosis Assessment/Plan All Active Problems Headache (Acute) CVA, by history and mri she appears to have two recent infarcts approximately two weeks apart echo tele outpt psg plavix (cant tolerate asa) statin pt/ot/sp
--- NOTE | 2018-04-30 11:18 | CON.PCM_ITS ---
Reason for Consult Date of Consultation: 04/30/18 Reason for Consultation: cva History of Present Illness: The patient is a 72 year old F right handed white female who two weeks ago noted left arm abormal sensation. two days ago noted left vision changes associated with headache and elevated blood pressure. couldnt tolerate asa in the past due to gi upset. no tobacco, quit 50yrs ago. admits to snoring. admits to EDS. naps approximately 3-4x/week. also had headache, now improved. The patient is a 72 year old F with a history of hypothyroidism and migraines. She last had a migraine about 15 years ago. She was admitted through the ED on 04/28/2018 with a complaint of 4-day history of headache. Headache was left- sided, associated with flashes of light. She thought was due to her migraine headaches and would get better. However the headache persisted and so she decided coming to the ED today. She denied any neck pain or photophobia, any chest pain, any blurred vision, any palpitations, any abdominal pain, any diarrhea vomiting. In the ED, blood pressure was found to be elevated, 218/96. Brain CT was negative for any acute intracranial pathology. Chemistry was significant for creatinine of 1.23 and CBC showed hemoglobin of 16.9. She is been admitted to be managed for hypertensive emergency. 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 Lives: Spouse/ Significant Other Smoking Status: Former smoker Alcohol: None - *Family History Maternal History Items: Hypertension Paternal History Items: No pertinent history Review of Systems Constitutional: Denies: Chills, Fever, Weight Change HEENT: Denies: Head Aches, Sinus Congestion, Sinus Drainage Cardiovascular: Denies: Chest Pain, Palpitations Respiratory: Denies: Cough, Shortness of breath at rest, Sputum production Gastrointestinal: Denies: Abdominal Pain, Nausea, Vomiting Genitourinary: Denies: Dysuria Musculoskeletal: Denies: Joint Pain, Joint Tenderness Skin: Denies: Rash, Wounds Neurological: Denies: Numbness, Tingling, Focal weakness Psychiatric: Denies: Anxiety, Depression, Homicidal Ideations, Suicidal Ideations Hematologic/ Lymphatic: Denies: Easy Bruising, Easy Bleeding Patient Problems: Active and Suspected Problems Headache (Acute) - Physical Exam General: Alert, Oriented x3, Cooperative, No apparent distress HEENT: Atraumatic, PERRLA, EOMI Musculoskeletal: No Tenderness to Palpation of Joints or Extremities Neurological: Cranial nerves II-XII grossly intact, Deep Tendon Reflexes 2+/4 and Symmetrical, Neuro grossly intact, Motor Exam 5/5 strength throughout, Sensory exam intact to light touch and pain, Coordination normal, Gait narrow based and stable Psych/Mental Status: Normal Affect, Appropriate Vital Signs Temp Pulse Resp BP Pulse Ox 36.8 C 57 L 18 122/66 H 97 04/30/18 09:44 04/30/18 09:44 04/30/18 09:44 04/30/18 09:44 04/30/18 09:44 Oxygen Delivery Method Room Air Weight: 82.214 kg Body Mass Index (BMI) 32.1 Finger Stick Blood Glucose 101 Intake and Output for Last 24 Hours 04/28/18 04/29/18 04/30/18 23:59 23:59 23:59 Intake Total 255 / 255 1071 / 1071 Output Total 500 / 500 550 / 550 150 / 150 Balance -245 / -245 521 / 521 -150 / -150 Laboratory Tests Past 24 Hrs 04/30/18 05:42 Sodium 140 Potassium 3.8 Chloride 108 H Carbon Dioxide 22.0 Anion Gap 10 BUN 25 H Creatinine 1.19 H Estim Creat Clear Calc 34.31 Est GFR (MDRD) Af Amer 57 L Est GFR (MDRD) Non-Af 47 L BUN/Creatinine Ratio 21.0 H Glucose 106 Calcium 8.4 L Current Home Med List Medication Instructions Recorded Confirmed Type Calcium Lactate 84 mg PO DAILY 04/28/18 04/28/18 History Levothyroxine [Synthroid] 50 mcg PO DAILY 04/28/18 04/28/18 History [place]-3 Fatty Acids/Fish Oil [Fish 1 each PO DAILY 04/28/18 04/28/18 History Oil 1,000 mg Capsule] [place] 250 mg PO DAILY 04/29/18 04/29/18 History B Complex C No.10/Folic Acid 900 mcg PO DAILY 04/29/18 04/29/18 History [Nephronex Liquid] Current Medications Acetaminophen 650 mg 04/28/18 19:12 Tylenol PO Q6H PRN PRN HEADACHE Amlodipine Besylate 10 mg 04/28/18 19:12 04/30/18 10:00 Norvasc PO 10 mg DAILY [facility] Administration Clopidogrel Bisulfate 75 mg 04/30/18 10:00 Plavix PO DAILY [facility] Heparin Sodium (Porcine) 5,000 unit 04/28/18 22:00 04/30/18 06:20 Heparin Na SC 5,000 unit Q8 [facility] Administration Hydralazine HCl 10 mg 04/28/18 19:12 Apresoline Iv IV Q6H PRN PRN BLOOD PRESSURE ELEVATION Levothyroxine Sodium 50 mcg 04/29/18 06:00 04/30/18 06:20 Synthroid PO 50 mcg DAILY@0600 [facility] Administration Lisinopril 10 mg 04/28/18 19:12 04/30/18 10:00 Zestril PO 10 mg DAILY [facility] Administration Magnesium Hydroxide 30 ml 04/28/18 19:12 Milk Of Magnesia PO DAILY PRN PRN Constipation [id number]-[id number] Ethyl Esters 1 gm 04/29/18 10:00 04/30/18 10:00 Lovaza PO 1 gm DAILY [facility] Administration Pravastatin Sodium 80 mg 04/30/18 10:42 Pravachol PO QHS [facility] mri reviewed, right acute/subacute thalamic infarct, right acute occipital infarct cta reviwed, no stenosis Assessment/Plan All Active Problems Headache (Acute) CVA, by history and mri she appears to have two recent infarcts approximately two weeks apart echo tele outpt psg plavix (cant tolerate asa) statin pt/ot/sp
[2018-04-30] MEDS: Clopidogrel Bisulfate 75 MG Tablet PO (12:39)
[2018-04-30] MEDS: Pravastatin 80 MG Tablet PO (12:39)
--- NOTE | 2018-04-30 12:46 | CASEMGMT ---
JONAH LAY assessment: Face to Face with patient for initial transition planning/care coordination assessment. JONAH LAY introduced self and role at [facility], pt voices understanding and consents to assessment at this time. Pt is sitting up in bed in no distress at this time. Pt is A/Ox4 at this time and answers all questions appropriately at this time. Care providers, pharmacy, and demographics verified/updated at this time. PCP: [facility] Specialists: Pt states currently has no specialists. Preferred Pharmacy: [facility] Insurance: [employer] Prescription Benefit: [employer] Living Will/HPOA: Pt states does not currently have AD but would like info at this time. Referral to [facility], voices understanding. LNOK: [place], Living Arrangements: Pt states lives with in 2 story home and states that she had no concerns at home prior to this visit. Pt states does have a flight of stairs to 2nd floor of home. Transportation: Pt states drives self and states no transportation concerns at this time. DME/HHC: Pt states has the following DME: grab bars, walker, and wheelchair. Pt states no hx of HHC or SNF in the past. Pt states no concerns with going home at time of discharge at this time. Therapy has not seen pt yet at this time. CM to follow neuro consult and therapy notes, and for any further discharge planning/needs. Pt voices no further concerns/needs at this time. Advised pt to ask for CM if any further questions/concerns/needs arise, voices understanding. Plan: TBD [place] JONAH LAY
[2018-04-30 16:51] LABS: Hemoglobin A1c 5.9 % (4.2-6.3)
[2018-05-01 01:40] VITALS: BP 102/45; PULSE 59; RESP 18; TEMP 36.9; O2SAT 97
[2018-05-01 03:00] VITALS: PULSE 53
[2018-05-01 05:38] VITALS: BP 131/80; PULSE 67; RESP 16; TEMP 36.6; O2SAT 96
[2018-05-01] MEDS: Heparin Injection (Vial) 5,000 UNIT/ML VIAL 5000 UNIT SC (05:38)
[2018-05-01] MEDS: Levothyroxine 50 MCG Tablet PO (05:38)
[2018-05-01 07:12] VITALS: PULSE 94
[2018-05-01 07:31] LABS: Anion Gap 10 (5-15); BUN 18 mg/dL (7-18); BUN/Creat Ratio 16.7 RATIO (10-20); Calcium,Total 8.6 mg/dL (8.5-10.1); Chloride 109 mmol/L (98-107); Creatinine, Serum 1.08 mg/dL (0.55-1.02); EST Glomerular Filtration Rate 53 mL/min (>60); Est Glom Filt Rate - Afr Amer 64 mL/min (>60); Glucose 99 mg/dL (74-106); Sodium Level 142 mmol/L (136-145)
[2018-05-01 09:33] VITALS: BP 114/57; PULSE 55; RESP 17; TEMP 36.2; O2SAT 96
[2018-05-01] MEDS: Omega-3 Acid Ethyl Esters 1 GM Capsule PO (09:45)
[2018-05-01] MEDS: Clopidogrel Bisulfate 75 MG Tablet PO (09:45)
[2018-05-01] MEDS: Pravastatin 80 MG Tablet PO (09:45)
[2018-05-01 10:20] VITALS: BMI 32.1
--- NOTE | 2018-05-01 10:36 | PCM.DC ---
- Discharge Diagnoses Current Active Problems: Current Active and Chronic Problems Headache (Acute) Reason(s) for Visit for Discharge Instructions: Headache, acute stroke You will use the following diet at home:: Cardiac Your food should be the consistency of: Regular Your liquids should be the consistency of: Regular/Thin Discharge Activity: Return to Normal Activity Additional Instructions: Note your new medications. Continue to follow-up with neurologist, your primary care doctor. You should monitor your blood pressure. Allergies/Adverse Reactions: Allergies No Known Allergies Allergy (Verified 04/28/18 14:31) Medications to take at Discharge Calcium Lactate 84 mg PO DAILY 04/28/18 Levothyroxine [Synthroid] 50 mcg PO DAILY 04/28/18 [place]-3 Fatty Acids/Fish Oil [Fish Oil 1,000 mg Capsule] 1 each PO DAILY 04/28/18 B Complex C No.10/Folic Acid [Nephronex Liquid] 900 mcg PO DAILY 04/29/18 Clopidogrel Bisulfate [Plavix] 75 mg PO DAILY #30 tablet 05/01/18 Pravastatin [Pravachol] 80 mg PO DAILY #30 tablet 05/01/18 The following prescriptions were given: Clopidogrel Bisulfate [Plavix] 75 mg PO DAILY #30 tablet Pravastatin [Pravachol] 80 mg PO DAILY #30 tablet Orders to be completed after discharge: Basic Metabolic Profile (BMP) Time Frame: 3 Days, Location: Laboratory Primary Care Physician: Carol Vargas MD [Primary Care Provider] - Please follow up with your Primary Care Physician in: within 2 weeks Test Results: Test results from this visit will be discussed in further detail at your follow-up appointment, if applicable. Please Follow Up With: David Starr MD When: in 2 weeks Proposed Discharge Date: 05/01/18
--- NOTE | 2018-05-01 10:40 | DCINST_ITS ---
- Discharge Diagnoses Current Active Problems: Current Active and Chronic Problems Headache (Acute) Reason(s) for Visit for Discharge Instructions: Headache, acute stroke You will use the following diet at home:: Cardiac Your food should be the consistency of: Regular Your liquids should be the consistency of: Regular/Thin Discharge Activity: Return to Normal Activity Additional Instructions: Note your new medications. Continue to follow-up with neurologist, your primary care doctor. You should monitor your blood pressure. Allergies/Adverse Reactions: Allergies No Known Allergies Allergy (Verified 04/28/18 14:31) Medications to take at Discharge Calcium Lactate 84 mg PO DAILY 04/28/18 Levothyroxine [Synthroid] 50 mcg PO DAILY 04/28/18 [place]-3 Fatty Acids/Fish Oil [Fish Oil 1,000 mg Capsule] 1 each PO DAILY 04/28/18 B Complex C No.10/Folic Acid [Nephronex Liquid] 900 mcg PO DAILY 04/29/18 Clopidogrel Bisulfate [Plavix] 75 mg PO DAILY #30 tablet 05/01/18 Pravastatin [Pravachol] 80 mg PO DAILY #30 tablet 05/01/18 The following prescriptions were given: Clopidogrel Bisulfate [Plavix] 75 mg PO DAILY #30 tablet Pravastatin [Pravachol] 80 mg PO DAILY #30 tablet Orders to be completed after discharge: Basic Metabolic Profile (BMP) Time Frame: 3 Days, Location: Laboratory Primary Care Physician: Carol Vargas MD [Primary Care Provider] - Please follow up with your Primary Care Physician in: within 2 weeks Test Results: Test results from this visit will be discussed in further detail at your follow- up appointment, if applicable. Please Follow Up With: Davdi Starr MD When: in 2 weeks Proposed Discharge Date: 05/01/18
--- NOTE | 2018-05-01 11:04 | CASEMGMT ---
JONAH LAY said patient asked about advance directives. SILVIA met with patient and her . Introduced self and role at [facility]. Patient did not want to complete documents. SW gave her copies of documents and the pamphlet on Social Work Dept's advance directive program. SW asked patient if she felt she needed continued therapy. She denied needing more therapy. SW asked her if she was homebound and she said she is not. She does not want home health or outpatient therapy. SILVIA told her if she changes her mind once she goes home her primary care doctor can also order HH. They thanked SILVIA. Senait SILVA MSW
--- NOTE | 2018-05-01 11:57 | DS.PCM_ITS ---
Discharge Date and Diagnosis Date of Admission: 04/28/18 Date of Discharge: 05/01/18 - Primary Discharge Diagnosis Active and Suspected Problems Headache (Acute) Acute/subacute right thalamic infarct, right occipital infarct Accelerated hypertension/hypertensive emergency Hospital Course and Treatment Imaging Results: Clinical Impression(s) from Imaging Studies Brain CT 04/28/18 15:05 IMPRESSION: Mild atrophy. No visualized evidence of acute hemorrhage infarct or edema. Electronically Signed: Unique Lynch MD at 15:48 EDT Tel , Service support , Chest X-Ray 04/28/18 15:29 IMPRESSION: No acute cardiopulmonary process. Electronically Signed: Lisa Siu MD at 16:10 EDT Tel , Service support , Neck CTA 04/28/18 15:59 IMPRESSION: Normal bilateral cervical carotid and vertebral arteries. Degenerative change of the cervical spine. 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 Given clinical history recommend consideration for follow-up MRI. Otherwise no evidence of visualized stenotic lesion no evidence of aneurysmal dilatation. Electronically Signed: Unique Lynch MD at 17:20 EDT Tel , Service support , Brain MRI 04/30/18 08:30 IMPRESSION: Acute right occipital and thalamic infarctions. N.B. : The above information has been verbally conveyed by Kash Hernández MD to Anh Jimenez RN, RN, on 04/30/2018 10:45:10 (ET). Electronically Signed: Kash Hernández MD at 9:52 EDT Tel , Service support , Neurology Operations: None Procedures: 2-D Echocardiogram Summary of Care Provided: 72-year-old female with past medical history of hypothyroidism, migraines comes in with complaints of acute headache and found to have elevated blood pressure with systolic more than 200. CT of the head negative for any acute bleed. 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 MRI of the brain showed acute/subacute right thalamic infarct, right occipital infarct .Patient was admitted to the telemetry bed, started on Plavix, statin. Seen by neurology, PT/OT. 2D echo did not show any shunting or thrombus. No arrhythmias seen on telemetry. Patient was recommended to have outpatient therapy when she was seen by PT and OT as she refused home health care. Her blood pressures initially high and started amlodipine and lisinopril. They improved and patient was taking of her blood pressure medications. She was asked to follow her blood pressures in the outpatient and follow-up with her primary care doctor. She also had acute kidney injury secondary to dehydration which improved with hydration. Subjective: The day of discharge, she felt well, denied any new complaint. NIHSS was 0 Objective: General: Alert, Oriented x3, Cooperative, No apparent distress HEENT: Atraumatic, PERRLA, EOMI, Normocephalic Oral: Moist Mucosa Neck: Supple, No JVD, Negative Carotid Bruits Lungs: Clear to auscultation, Normal air movement Cardiovascular: Regular rate, Regular Rhythm, Normal S1, Normal S2, No murmurs Abdomen: Bowel Sounds Present, Soft, Non Tender, Non-Distended, No Hepato- splenomegaly Extremities: No edema Skin: No rashes, No breakdown Musculoskeletal: No Tenderness to Palpation of Joints or Extremities Lymphatic: No Cervical, Supraclavicular, or Inguinal Adenopathy Neurological: Cranial nerves II-XII grossly intact, Neuro grossly intact Psych/Mental Status: Normal Affect, Appropriate - Physical Exam Vital Signs Temp Pulse Resp BP Pulse Ox 97.1 F L 55 L 17 114/57 L 96 05/01/18 09:33 05/01/18 09:33 05/01/18 09:33 05/01/18 09:33 05/01/18 09:33 Oxygen Delivery Method Room Air Weight: 82.2 kg Body Mass Index (BMI) 32.1 Finger Stick Blood Glucose 101 Intake and Output for Last 24 Hours 04/29/18 04/30/18 05/01/18 23:59 23:59 23:59 Intake Total 1071 / 1071 660 / 660 100 / 100 Output Total 550 / 550 350 / 350 Balance 521 / 521 310 / 310 100 / 100 Laboratory Tests Past 24 Hrs 04/30/18 05/01/18 05:42 06:37 Sodium 142 Potassium 4.0 Chloride 109 H Carbon Dioxide 23.0 Anion Gap 10 BUN 18 Creatinine 1.08 H Estim Creat Clear Calc 37.80 Est GFR (MDRD) Af Amer 64 Est GFR (MDRD) Non-Af 53 L BUN/Creatinine Ratio 16.7 Glucose 99 Hemoglobin A1c 5.9 Calcium 8.6 Discharge Diet: Low fat/ Low Cholesterol, 2000 mg Sodium Diet Discharge Activity: Return to Normal Activity Home Medications: Medications to take at Discharge Calcium Lactate 84 mg PO DAILY 04/28/18 Levothyroxine [Synthroid] 50 mcg PO DAILY 04/28/18 [place]-3 Fatty Acids/Fish Oil [Fish Oil 1,000 mg Capsule] 1 each PO DAILY 04/28/18 B Complex C No.10/Folic Acid [Nephronex Liquid] 900 mcg PO DAILY 04/29/18 Clopidogrel Bisulfate [Plavix] 75 mg PO DAILY #30 tablet 05/01/18 Pravastatin [Pravachol] 80 mg PO DAILY #30 tablet 05/01/18 Following Prescrptions Were Given to Patient: Clopidogrel Bisulfate [Plavix] 75 mg PO DAILY #30 tablet Pravastatin [Pravachol] 80 mg PO DAILY #30 tablet Other Amb Orders: Basic Metabolic Profile (BMP) Time Frame: 3 Days, Location: Laboratory Primary Care Physician: Carol Vargas MD [Primary Care Provider] - Please follow up with your Primary Care Physician in: within 2 weeks Please Follow Up With: David Starr MD When: in 2 weeks Disposition: Home Minutes spent on discharge:: 45 Patient Condition:: Stable Medical Necessity - Tobacco Use Smoking Status: Former smoker Meaningful Use Info Meaningful Use Diagnoses (Choose all that apply): Ischemic CVA - CVA Therapy Assessed for PT,OT and/or ST?: Yes - Ischemic Stroke Antithrombotic order at d/c?: No Reason antithrombotic not ordered: Treatment not Indicated Dx of Atrial fib/flutter?: No Anticoagulant at discharge?: No Reason anticoagulant not ordered: Treatment not Indicated Statins at discharge?: Yes Primary Dx Acute Ischemic CVA?: Yes IV tPA ordered during stay?: No Reason IV t-PA not ordered: Treatment not Indicated Code Visit Inpatient E&M: 95450 Disch Hosp
--- NOTE | 2018-05-01 13:00 | CASEMGMT ---
Per Dr. Enriquez, pt agreed to OP therapy at this time. Order faxed to [facility] at this time and original to pt with discharge instructions. Laquita MCKENZIE CM
== END 2018-05-01 13:38 | disposition home or self-care (01) | DRG 65 ==
LOC: ED 15:19 → PCU 18:19
PROVIDERS: Admitting Provider Student in an Organized Health Care Education/Training Program; Emergency Provider Emergency Medicine; Family Provider Family Medicine; PCP Family Medicine; Referring Provider Student in an Organized Health Care Education/Training Program; Visit Provider Internal Medicine
DX: I63.9 Cerebral infarction, unspecified (principal); I16.1 Hypertensive emergency; N17.9 Acute kidney failure, unspecified; G43.909 Migraine, unspecified, not intractable, without status migrainosus; E03.9 Hypothyroidism, unspecified; Z87.891 Personal history of nicotine dependence; R29.701 NIHSS score 1; E86.0 Dehydration; I10 Essential (primary) hypertension
CPT/HCPCS: 36415; 70450; 70496; 70498; 70551; 71045; 80048; 80061; 82962; 83036; 84484; 85025; 85610; 85730; 92523; 93005; 93306; 97162; 97165; 97530; 97535; 97802; 99284; J7030; Q9957; Q9967; A4216; C8929

== ENCOUNTER → 2018-05-05 11:10 | Outpatient (CLI) | payer MEDICARE, SELFPAY ==
[2018-05-05 12:40] LABS: Anion Gap 9 (5-15); BUN 16 mg/dL (7-18); BUN/Creat Ratio 14.7 RATIO (10-20); Chloride 106 mmol/L (98-107); Creatinine, Serum 1.09 mg/dL (0.55-1.02); EST Glomerular Filtration Rate 52 mL/min (>60); Est Glom Filt Rate - Afr Amer 63 mL/min (>60); Glucose 107 mg/dL (74-106); Potassium 4.3 mmol/L (3.5-5.1); Sodium Level 138 mmol/L (136-145)
== END ==
PROVIDERS: Family Provider Family Medicine; PCP Family Medicine; Referring Provider Internal Medicine; Visit Provider Internal Medicine
DX: N17.9 Acute kidney failure, unspecified (principal)
CPT/HCPCS: 36415; 80048

== ENCOUNTER → 2018-05-21 20:00 | Outpatient (CLI) | payer MEDICARE, SELFPAY | PROVIDERS: Family Provider Family Medicine; PCP Family Medicine; Visit Provider Psychiatry & Neurology Neurology | DX: G47.33 Obstructive sleep apnea (adult) (pediatric) (principal); Z86.73 Personal history of transient ischemic attack (TIA), and cerebral infarction without residual deficits | CPT/HCPCS: 95810; 97110; 97116; 97140; 97530 ==

== ENCOUNTER → 2018-05-31 11:08 | Outpatient (CLI) | payer MEDICARE, SELFPAY ==
[2018-05-01 10:20] VITALS: BMI 32.1
[2018-05-31 12:25] LABS: ALB/GLOB Ratio 1.2 RATIO (0.9-2.4); AST(SGOT) 80 U/L (15-37); Alanine Aminotransfer ALT/SGPT 109 U/L (13-56); Albumin, Serum 3.6 g/dL (3.2-5.0); Alkaline Phosphatase 85 U/L (45-117); Anion Gap 11 (5-15); BUN 11 mg/dL (7-18); BUN/Creat Ratio 11.1 RATIO (10-20); Calcium,Total 9.3 mg/dL (8.5-10.1); Chloride 109 mmol/L (98-107); Cholesterol 167 mg/dL (200); Creatinine, Serum 0.99 mg/dL (0.55-1.02); EST Glomerular Filtration Rate 58 mL/min (>60); Est Glom Filt Rate - Afr Amer 71 mL/min (>60); Glucose 106 mg/dL (74-106); High Density Lipoprotein 42 mg/dL; Potassium 4.3 mmol/L (3.5-5.1); Protein, Total 6.6 g/dL (6.4-8.2); Sodium Level 143 mmol/L (136-145); Triglycerides 111 mg/dL; Very Low Density Lipoprotein 22 mg/dL (5-40)
--- OUTSIDE RECORDS SUMMARY | 2018-07-26 13:46 | XMS RPT_ITS ---
:1945 Author Organization OHIP Support Name Relationship Address Phone R Unavailable Unavailable Unavailable LIYA, BRIDGETTE Unavailable [address] + [place] [address] R Unavailable Unavailable Unavailable LIYA, BRIDGETTE Unavailable [address] + [place] [address] R Unavailable Unavailable Unavailable LIYA, BRIDGETTE Unavailable [address] + [place] [address] R Unavailable Unavailable Unavailable LIYA, BRIDGETTE Unavailable [address] + [place] [address] R Unavailable Unavailable Unavailable LIYA, BRIDGETTE Unavailable [address] + [place] [address] R Unavailable Unavailable Unavailable LIYA, BRIDGETTE Unavailable [address] + [place] [address] R Unavailable Unavailable Unavailable LIYA, BRIDGETTE Unavailable [address] + [place] [address] R Unavailable Unavailable Unavailable LIYA, BRIDGETTE Unavailable [address] + [place] [address] R Unavailable Unavailable Unavailable LIYA, BRIDGETTE Unavailable [address] + [place] [address] R Unavailable Unavailable Unavailable LIYA, BRIDGETTE Unavailable [address] + [place] [address] RETIRED Unavailable . +. ., . . BRIDGETTE LARES Unavailable [address] + [place] [address] Care Team Providers Name Role Phone Carol Vargas Attending Unavailable Carlo Vargas Primary Care Unavailable Carol Vargas Primary Care Unavailable Koram, Queta Shwetha Admitting Unavailable Koram, Queta Shwetha Referring Unavailable Paint[place], [place] Attending Unavailable David Starr Consulting Unavailable Koram, Queta Shwetha Admitting Unavailable Koram, Queta Shwetha Attending Unavailable Koram, Queta Shwetha Referring Unavailable Jolliff, Carol Primary Care Unavailable Koram, Queta Shwetha Consulting Unavailable Koram, Queta Shwetha Admitting Unavailable [place], [place] Attending Unavailable Koram, Queta Shwetha Referring Unavailable Jolliff, Carol Primary Care Unavailable [place], [place] Consulting Unavailable Koram, Queta Shwetha Admitting Unavailable [place], [place] Attending Unavailable Koram, Queta Shwetha Referring Unavailable Jolliff, Carol Primary Care Unavailable Starr, David Consulting Unavailable [place], [place] Consulting Unavailable Koram, Queta Shwetha Admitting Unavailable [place], [place] Attending Unavailable Koram, Queta Shwetha Referring Unavailable Jolliff, Carol Primary Care Unavailable Starr, David Consulting Unavailable [place], [place] Consulting Unavailable [place], [place] Attending Unavailable [place], [place] Referring Unavailable Jolliff, Carol Primary Care Unavailable [place], [place] Referring Unavailable Jolliff, Carol Primary Care Unavailable Jolliff, Carol Attending Unavailable Robb Segura Attending Unavailable [place], [place] Referring Unavailable Starr, David Attending Unavailable Jolliff, Carol Primary Care Unavailable Jolliff, Carol Primary Care Unavailable Stauffer, Albert Attending Unavailable PROBLEMS PROBLEMS DATE TYPE CONDITION / CODE ATTENDING STATUS SOURCE 06/07/2018 Unknown Z86.73 - Personal Carol Vargas Active Jeremy history of transient Community ischemic attack Hospital (TIA), and cerebral Repository infarction without residual deficits / Z86.73(ICD-10) 05/31/2018 Unknown 272.4 - Other and Albert Stauffer Active Jeremy unspecified Community hyperlipidemia / Hospital 272.4(ICD-9) Repository 05/31/2018 Unknown E78.5 - Albert Stauffer Active Jeremy Hyperlipidemia, Community unspecified / Hospital E78.5(ICD-10) Repository 05/21/2018 Unknown G47.33 - Obstructive Ro Active [place] sleep apnea (adult) [facility] (pediatric[facility] / Hospital G47.33(ICD-10) Repository 05/14/2018 Unknown I63.9 - Cerebral [place], [place] Active [place] infarction, Community unspecified / Hospital I63.9(ICD-10) Repository PROCEDURES PROCEDURES No Procedure Records FoundRESULTS RESULTS PT D/C SUMMARY (1) Observed: 06/08/2018 Status: F Source: [place] 12:54 PM [facility] REPOSITORY [facility] Physical Therapy [facility] [address] [place], [place] [address] Fax REHABILITATION SERVICES DISCHARGE SUMMARY MR#: [id number] Acct: [id number] Name: CASSIE LARES Rep #: [id number] : 1945 72 From: Chelsea Rodríguez PT, Cert. MDT Referring Dr.: Carol Vargas MD Status: REG RCR Insurance: [employer] SELF PAY INSURANCE HP - PT D/C Summary It has been my pleasure to treat CASSIE LARES under orders from Carol Vargas MD, for the diagnosis of ACUTE RIGHT OCCIPITAL AND THALAMIC INFARCTIONS for a total of 8 visit(s). Discharge Date: 06/07/18 Please see the following information for a summary of their discharge status. - Subjective Subjective: PATIENT REPORTS SHE CAN WALK MORE ON CENTER NOW AND SHE DOESN'T HAVE ANY PROBLEM WALKING ACROSS A ROOM NOW. GOING UP AND DOWN STAIRS DOESN'T BOTHER HER BUT SHE DOES USE A HANDRAIL FOR SAFETY. PATIENT REPORTS SHE IS ABLE TO GO SHOPPING NOW BUT WAITING IN LINE IS TIRING. SHE STATES SHE IS PRETTY MUCH BACK TO DOING EVERYTHING THAT SHE DID BEFORE THE STROKE EXCEPT DRIVING AND THAT IS VISION RELATED. PATIENT REPORTS SHE ISN'T HAVING ANY PAIN AT THE MOMENT BUT HER LEFT ARM IS TINGLY. NO BACK, HIP OR LEG PAIN SURPRISINGLY. NO LONGER TAKING ANY PAIN MEDICINE. HAD SLEEP STUDY AND GOING TO START A SLEEPING PILL. NOT FEELING LIKE LEFT SOCK IS FALLING DOWN TODAY AND PATIENT IS GLAD. - Pain LEFT UPPER ARM Pain Intensity (Out of 10): Unrated RIGHT HIP Pain Intensity (Out of 10): 0 - Overall Improvement % Improvement: 75 - Objective Objective/Function: PATIENT IS PLEASANT AND COOPERATIVE TO WORK WITH. SHE HAS MADE GOOD PROGRESS TOWARD ALL PT GOALS DEMONSTRATING IMPROVED BALANCE, GAIT AND STAMINA. SHE IS INDEP WITH A HEP. SHE NEEDED A LITTLE EXTRA TIME TO ANSWER SOME QUESTIONS BUT SEEMED TO COMPREHEND ALL QUESTIONS JUST NEEDING TIME TO GIVE ANSWER ALTHOUGH IMPROVED FROM EVAL. ORIENTATION: A AND O X 3. Sitting/Standing Posture: FAIR. REDUCED LORDOSIS BUT NO RELEVENT LATERAL SHIFT. Other Observations: INDEP GAIT INTO PT WITHOUT ANY ASSISTIVE DEVICES OR LOB. MILD SPASTICITY IN LEFT LE. INDEP TRANSFERS SIT TO STAND FROM CHAIR WITHOUT UE ASSIST. PATIENT IS ABLE TO SLS ON EACH LEG X APPROX 10 SEC WITHOUT UE ASSIST NOW. SHE IS ABLE TO MAINTAIN STANDING BALANCE WITH HER EYES OPEN AND CLOSED. SHE CAN TURN 360 DEG YANA WITHOUT LOB. SHE IS ABLE TO TANDUM WALK NOW SHORT DISTANCES. Motor deficit: YANA LE'S 5/5 WITH MMT'ING EXCEPT A LITTLE WEAKNESS NOTED IN BOTH HIPS. PATIENT REPORTS HER HIPS DO NOT FEEL WEAK TO HER. Sensory deficit: YANA LE LIGHT TOUCH SENSATION APPEARS TO BE INTACT AND SYMMETRICAL. ROM deficit: YANA LE'S WFL. CORE STRENGTH: POOR. TIME UP AND GO TEST: 7.6 SECONDS INDICATING LOW RISK OF FALL. TEST PERFORMED WITHOUT ANY ASSISTIVE DEVICES OR REST. LEFS HAS IMPROVED FROM 51 TO 61. - Goals Goal 1:: INDEP AND SAFE GAIT ON ALL SURFACES TO ALLOW FOR SAFE RETURN TO PRIOR LEVEL OF FUNCTION Goal 2:: INDEP HEP FOR CONTINUED IMPROVEMENT ONCE FORMAL PHYSICAL THERAPY CONCLUDES Goal Progress: Goal Met - Plan Plan: D/C. PATIENT AGREEABLE. - D/C Information If there are questions or concerns regarding this patient's physical therapy, please feel free to call me at [phone]. Thank you for the referral of this patient. Sincerely, Chelsea Rodríguez <Electronically signed by Chelsea Rodríguez PT, Cert. MDT> 06/08/18 1254 CC: Carol Vargas MD NANDA Signed COMPREHENSIVE METABOLIC Collected: 05/31/2018 Status: F Source: JEREMY PROFIL 11:09 AM [facility] REPOSITORY TYPE CODE TESTS RESULT OUT OF RANGE REFERENCE UNITS LAB L501.0100 74-106 mg/dL Normal GLU 106 Result Comment: Fasting Glucose result from 100 to 125 mg/dL suggests IMPAIRED HOMEOSTASIS per A.D.A. criteria. Please note revised GLUCOSE reference range effective 2017. LAB L501.1000 7-18 mg/dL Normal BUN 11 LAB L501.1100 0.55-1.02 mg/dL Normal CREAT,SERUM 0.99 Result Comment: The validity of the calculated GFR AND GFRAA in patients over 70 years has not been determined. Clinical correlation is essential. LAB L501.1110 >60 mL/min Low EST GFR 58 Result Comment: Non- GFR Calc LAB L501.1115 >60 mL/min Normal EST GFR - AA 71 Result Comment: GFR Calc LAB L501.1300 10-20 RATIO Normal BUN/CRE 11.1 LAB L501.1500 6.4-8.2 g/dL T Normal PROT 6.6 LAB L501.1800 3.2-5.0 g/dL Normal ALB 3.6 LAB L501.1950 2.2-4.2 g/dL Normal GLOB 3.0 LAB L501.2000 0.9-2.4 RATIO Normal A/G 1.2 LAB L501.2200 8.5-10.1 mg/dL CA Normal 9.3 LAB L501.4100 15-37 U/L High AST 80 LAB L501.4305 45-117 U/L Normal ALK P 85 LAB L501.4405 13-56 U/L High ALT 109 LAB L501.4600 0.20-1.00 mg/dL T Normal BILI 1.00 LAB L501.5300 136-145 mmol/L NA Normal 143 LAB L501.5600 3.5-5.1 mmol/L K Normal 4.3 LAB L501.5900 98-107 mmol/L High CL 109 LAB L501.6100 21.0-32.0 mmol/L Normal CO2 23.0 LAB L501.6200 5-15 Normal GAP 11 Performed By: #### L500.4050, L500.4100 #### [facility] [address] [facility]. [place], [place], [address] LIPID PROFILE Collected: 05/31/2018 Status: F Source: [place] 11:09 AM [facility] REPOSITORY TYPE CODE TESTS RESULT OUT OF RANGE REFERENCE UNITS LAB L501.4900 200 mg/dL Normal CHOL 167 Result Comment: <200 mg/dL Desirable 200-240 mg/dL Borderline >240 mg/dL High Risk LAB L501.5000 mg/dL Normal TRIG 111 Result Comment: The drugs N-Acetylcysteine and Metamizole may falsely depress this assay. Serum Triglycerides Reference Interval Normal <150 mg/dL Borderline high 150 - 199 mg/dL High 200 - 499 mg/dL Very High > or = 500 mg/dL LAB L501.6400 mg/dL Normal HDL 42 Result Comment: The drugs N-Acetylcysteine and Metamizole may falsely depress this assay. Reference Range HDL <40 mg/dL Low HDL Cholesterol HDL >or= 60 mg/dL High HDL Cholesterol LAB L501.6500 0-130 mg/dL Normal LDL 103 LAB L501.6600 5-40 mg/dL Normal VLDL 22 Performed By: #### L500.4050, L500.4100 #### [facility] [address] [place], [address] INITAL EVALUATION (1) Observed: 05/10/2018 Status: F Source: [place] - PT 1:13 PM [facility] REPOSITORY [facility] Physical Therapy [facility] [address] [place], [place] [address] Fax REHABILITATION SERVICES INITIAL EVALUATION MR#: [id number] Acct: [id number] Name: CASSIE LARES Rep #: [id number] : 1945 72 From: Chelsea Rodríguez PT, Cert. MDT Referring Dr.: Brenda Enriquez MD Status: REG RCR Insurance: [employer] [facility] SELF PAY INSURANCE Patient's Visit Information CASSIE LARES is a 72 year old F referred to Physical Therapy by Brenda Enriquez MD with a diagnosis of ACUTE RIGHT OCCIPITAL AND THALAMIC INFARCTIONS. Date of Evaluation: 05/10/18 Physical Therapist: Chelsea Rodríguez - Visit Plan Frequency: 2x /Week Duration: 4 Weeks Plan: GAIT AND BALANCE TRAINING. WRITTEN HEP. - Subjective Subjective: Work/Leisure: RETIRED. Disability: NO. Present symptoms: TINGLING IN LEFT UPPER ARM. FUNNY FEELING LEFT FOOT AND ANKLE. PRESSURE FEELING LOWER LEG AND FOOT. TINGLING AROUND MOUTH. DECRASED PERIPHERAL VISION. Present since: CVA APR 28 2018. Pain Scale: N/A. Commenced as a result of: HIGH BLOOD PRESSURE POSSIBLY. Symptoms at onset: TINGLING AROUND MOUTH. Disturbed sleep: NO INCREASED DIFFICULTY SINCE STROKE. Previous history/Previous treatment: NO PRIOR STROKES. Gait: PATIENT REPORTS HER WALKING IS NOT STABLE SINCE HAVING THE STROKE AND SHE STATES SHE CAN TELL SHE DOESN'T TRACK STRAIGHT. NO ASSISTIVE DEVICES. FALL AT [facility] BEFORE ABOUT 6 DAYS BEFORE THE STROK APR 22 2018. SHE STATES SHE REALLY ISN'T SURE HOW SHE FELL BUT SHE BANGED UP HER KNEES. SHE DOESN'T REMEMBER HITTING HER HEAD AND SHE DID NOT FX ANYTHING. Accidents: NO. Unexplained weight loss: NO. Imaging: MRI OF BRAIN APR 28 2018 - DX OF STROKE. PMH: HTN. HYPOTHYROIDISM. RA. H/O CHRONIC LOW BACK PAIN WITH CHIROPRACTIC TREATMENTS IN THE PAST. PLOF (Prior Level of Function): PATIENT REPROTS THAT BEFORE THE STROKE SHE WAS ABLE TO DRIVE AND GO WHERE SHE WANTED WHEN SHE WANTED. NO SQUATTING OR HEAVY LIFTING BEFORE THE STROKE. RESPONSIBLE FOR COOKING AND CLEANING FOR HER AND PRIOR TO STROKE. FOR THE MOST PART PATIENT REPORTS SHE JUST FEELS TIRED - MORE TIRED THAN BEFOR THE STROKE AND SHE IS SLEEPING A LOT MORE NOW THAN BEFORE THE STROKE. OTHER: PATIENT REPORTS SHE HAD A BRIEF PT ASSESSMENT IN THE HOSPITAL BUT NO PT TREATMENTS IN THE HOSPITAL AND NO HOME PT. NO EXERCISES GIVEN. - Objective PATIENT IS PLEASANT AND COOPERATIVE TO WORK WITH. SHE NEEDED EXTRA TIME TO ANSWER SOME QUESTIONS BUT SEEMED TO COMPREHEND ALL QUESTIONS JUST NEEDING TIME TO GIVE ANSWER. ORIENTATION: A AND O X 3. Sitting/Standing Posture: POOR. REDUCED LORDOSIS BUT NO RELEVENT LATERAL SHIFT. Other Observations: INDEP GAIT INTO PT WITHOUT ANY ASSISTIVE DEVICES OR LOB. MILD SPASTICITY IN LEFT LE. INDEP TRANSFERS SIT TO STAND FROM CHAIR WITHOUT UE ASSIST. PATIENT IS ABLE TO SLS ON EACH LEG X APPROX 5 SEC WITHOUT UE ASSIST. SHE IS ABLE TO MAINTAIN STANDING BALANCE WITH HER EYES OPEN AND CLOSED. SHE CAN TURN 360 DEG YANA WITHOUT LOB. SHE IS UNABLE TO TANDUM WALK. Motor deficit: RIGHT LE STRENGTH 5/5 WITH MMT'ING EXCEPT HIP GRADED 4/5. LLE STRENGTH: HIP 4-/5, KNEE EXT 5/5, KNEE FLEX 5/5 AND ANKLE 5/5. Sensory deficit: YANA LE LIGHT TOUCH SENSATION APPEARS TO BE INTACT AND SYMMETRICAL. ROM deficit: YANA LE'S WFL. CORE STRENGTH: POOR. TIME UP AND GO TEST: 11.41 SECONDS INDICATING LOW RISK OF FALL. TEST PERFORMED WITHOUT ANY ASSISTIVE DEVICES OR REST. - Goals Goal 1:: INDEP AND SAFE GAIT ON ALL SURFACES TO ALLOW FOR SAFE RETURN TO PRIOR LEVEL OF FUNCTION Goal Time Frame: 2-4 Weeks Goal 2:: INDEP HEP FOR CONTINUED IMPROVEMENT ONCE FORMAL PHYSICAL THERAPY CONCLUDES Goal Time Frame: 2-4 Weeks - Rehabilitation Potential Rehabilitation Potential: Fair - Anticipated Interventions Patient/Client Instruction: Educate patient on: Condition, Plan of Care, Risk Factors, Benefits of Fitness Program For the Purpose of:: To improve self management Therapeutic Exercise to Include: Strength training, Balance training, Coordination, Gait and locomotor training, Neuromotor development For the Purpose of:: To improve muscle performance and motor function, To increase tolerance to activity/condition/position, To improve ability of physical actions for home/community/work/leisure, To improve gait and locomotor functions Thank you for the opportunity to evaluate your patient. For Medicare and Medicare HMO plans, please review the plan of care and approve it. It will need to be FAXED BACK to us at [phone] for Medicare purposes. Please let me know if there are questions or concerns regarding this plan of care. Physician Signature: Date: <Electronically signed by Chelsea Rodríguez PT, Cert. MDT> 05/10/18 1313 CC: Brenda Enriquez MD; Carol Vargas MD NANDA Signed For Medicare only, by signing this I certify the plan of care. Physicians Signature Date OT GENERAL EVALUATION Observed: 05/10/2018 Status: F Source: [place] 12:48 PM [facility] REPOSITORY [facility] Occupational Therapy [address] [place] [address] Fax REHABILITATION SERVICES INITIAL EVALUATION MR#: [id number] Acct: [id number] Name: CASSIE LARES Rep #: [id number] : 1945 72 From: Chinyere Alberto Referring Dr.: Brenda Enriquez MD Status: REG RCR Insurance: [facility] Eval Date: SELF PAY INSURANCE Patient's Visit Information CASSIE LARES is a 72 year old F, referred to Occupational Therapy by Brenda Enriquez MD, with a diagnosis of acute right occipital and thalamic infarction. Date of Evaluation: 05/10/18 Occupational Therapist: Chinyere Alberto - Subjective Subjective: Pt seen for initial occupational therapy evaluation for recent CVA acute right occipital and thalamic infarctions. Pt states over a week ago May 01, 2018. Pt states stayed in hospital 3 days then returned back home w/ spouse. Pt states lives in 2 story house with bedroom and bathroom on 2nd floor with spouse. 6 steps to enter 2 handrails. Amb no device, has cane and walker at home if needed. Independent with BADL, meal prep, driving, laundry in basement. Tub/shower with grab bars. Has shower chair starts out sitting but ends up standing to shower. Raised toilet seat with grab bar. Sleeps in regular bed. R handed. Pt states since CVA has had to use both hands to help lift things, dropped drawer on the floor and decreased strength and coordination of L hand with completing her BADLs. - Objective Objective/Observation: decreased peripheral vision L side, decreased coordination and strength L UE - ROM ROM Comments: BUE AROM WFL - Strength Clinical Assessment Manager: R 50#, L 35# Lateral Pinch: R 10#, L 7# Tripod Pinch: R 8#, L 4# Strength Comments: MMT R UE 4/5, L UE 4-/5 - Edema Other: No edema - Sensation Sensation Comments: L arm tingling slightly in forearm, with increased tingling elbow to shoulder L UE. - Visual/Perceptual Skills Visual Field Cut: Yes - decreased left peripheral vision since CVA - Nine Hole Peg Right: 24.2 seconds Left: 31.5 seconds Comments: R hand dominent - DASH-Disabilities of Arm, Shoulder AND Hand DASH Sum: 41 - Goals Goal:: Pt will progress w/ generalized L UE strength 4/5 to assist w/ carrying her laundry basket independently. Pt will progress w/ L hand orthopedic physician strength from 35# to 50# to increase independence with meal prep tasks. Goal:: Pt will progress w/ L hand coordination and dexterity skills to manipulate all fasteners independently without extra time needed. Pt will progress w/ L hand dexterity skills to complete nine hole peg test in 28 seconds or less by d/c from OT services. Goal:: Pt will be educated on adaptive techniques, compensatory strategies to assist with decresaed L peripheral vision with good understanding and demo 100%x. Goal:: Pt will be able to cut up food with a knife with good coordination skills independently. Goal:: Pt will be educated on L UE HEP with good understanding and demo 100%x. - Rehabilitation General Assessment: Pt demo decreased coordination and strength of L hand and decreased peripheral vision of L eye limiting her independence with BADLs/IADLs and hobbies all indicating a need for skilled OT interventions to increase L UE orthopedic physician/pinch strength, increase L hand coordination skills, educate on adaptive techniques, compensatory strategies to assist with decreased peripheral vision and educate on HEP L UE to increase pt's quality of life. Rehabilitation Potential: Good - Anticipated Interventions Anticipated Interventions: Strengthening, Modalities, Joint Protection/Energy Conservation, Fine Motor Coord/John, Neuro Reeducation, Visual/Perceptual Skills, ADL Training, Education re assistive Equipment, Education re Diagnosis, Home Program - Visit Plan Frequency: 1-2x /Week Duration: 4-6 Weeks General Plan: increase L UE strength, orthopedic physician strength, increase coordination skills L UE, educate on adaptive tech, compensatory strategies for decreased L peripheral vision, educate on HEP L UE TEXT: Thank you for the opportunity to evaluate your patient. For Medicare and Medicare HMO plans, please review the plan of care and approve it. It will need to be FAXED BACK to us at [phone] for Medicare purposes. Please let me know if there are questions or concerns regarding this plan of care. Physician Signature: Date: <Electronically signed by Chinyere Alberto > 05/10/18 1248 CC: Brenda Enriquez MD; Carol Vargas MD SLV Signed For Medicare only, by signing this I certify the plan of care. Physicians Signature Date BASIC METABOLIC Collected: 05/05/2018 Status: F Source: [place] PROFILE (BMP) 11:15 AM [facility] REPOSITORY Order Comment: Send Results To: PCP Reason for Laboratory Test follow-up on [place] TYPE CODE TESTS RESULT OUT OF RANGE REFERENCE UNITS LAB L501.0100 74-106 mg/dL High GLU 107 Result Comment: Fasting Glucose result from 100 to 125 mg/dL suggests IMPAIRED HOMEOSTASIS per A.D.A. criteria. Please note revised GLUCOSE reference range effective 2017. LAB L501.1000 7-18 mg/dL Normal BUN 16 LAB L501.1100 0.55-1.02 mg/dL High CREAT,SERUM 1.09 Result Comment: The validity of the calculated GFR AND GFRAA in patients over 70 years has not been determined. Clinical correlation is essential. LAB L501.1110 >60 mL/min Low EST GFR 52 Result Comment: Non- GFR Calc LAB L501.1115 >60 mL/min Normal EST GFR - AA 63 Result Comment: GFR Calc LAB L501.1300 10-20 RATIO Normal BUN/CRE 14.7 LAB L501.2200 8.5-10.1 mg/dL CA Normal 9.0 LAB L501.5300 136-145 mmol/L NA Normal 138 LAB L501.5600 3.5-5.1 mmol/L K Normal 4.3 LAB L501.5900 98-107 mmol/L CL Normal 106 LAB L501.6100 21.0-32.0 mmol/L Normal CO2 23.0 LAB L501.6200 5-15 Normal GAP 9 Performed By: #### L500.2500 #### [facility] [address] [place], [address] DISCHARGE SUMMARY Observed: 05/01/2018 Status: F Source: [place] 5:10 PM [facility] REPOSITORY [facility] Medical Records Department [address] [place] [address] Discharge Summary 05/01/18 1157 MR#: [id number] Acct: [id number] Name: CASSIE LARES Rep #: [id number] : 1945 72 From: Brenda Enriquez MD PCP: Carol Vargas MD Status: DIS IN Y Location: [place] [address] Discharge Date and Diagnosis Date of Admission: 04/28/18 Date of Discharge: 05/01/18 - Primary Discharge Diagnosis Active and Suspected Problems Headache (Acute) Acute/subacute right thalamic infarct, right occipital infarct Accelerated hypertension/hypertensive emergency Hospital Course and Treatment Imaging Results: Clinical Impression(s) from Imaging Studies Brain CT 04/28/18 15:05 IMPRESSION: Mild atrophy. No visualized evidence of acute hemorrhage infarct or edema. Electronically Signed: Unique Lynch MD at 15:48 EDT Tel , Service support , Chest X-Ray 04/28/18 15:29 IMPRESSION: No acute cardiopulmonary process. Electronically Signed: Lisa Siu MD at 16:10 EDT Tel , Service support , Neck CTA 04/28/18 15:59 IMPRESSION: Normal bilateral cervical carotid and vertebral arteries. Degenerative change of the cervical spine. 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 Given clinical history recommend consideration for follow- up MRI. Otherwise no evidence of visualized stenotic lesion no evidence of aneurysmal dilatation. Electronically Signed: Unique Lynch MD at 17:20 EDT Tel , Service support , Brain MRI 04/30/18 08:30 IMPRESSION: Acute right occipital and thalamic infarctions. N.B. : The above information has been verbally conveyed by Kash Hernández MD to Anh Jimenez RN, RN, on 04/30/2018 10:45:10 (ET). Electronically Signed: Kash Hernández MD at 9:52 EDT Tel , Service support , Neurology Operations: None Procedures: 2-D Echocardiogram Summary of Care Provided: 72-year-old female with past medical history of hypothyroidism, migraines comes in with complaints of acute headache and found to have elevated blood pressure with systolic more than 200. CT of the head negative for any acute bleed. 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 MRI of the brain showed acute/subacute right thalamic infarct, right occipital infarct .Patient was admitted to the telemetry bed, started on Plavix, statin. Seen by neurology, PT/OT. 2D echo did not show any shunting or thrombus. No arrhythmias seen on telemetry. Patient was recommended to have outpatient therapy when she was seen by PT and OT as she refused home health care. Her blood pressures initially high and started amlodipine and lisinopril. They improved and patient was taking of her blood pressure medications. She was asked to follow her blood pressures in the outpatient and follow-up with her primary care doctor. She also had acute kidney injury secondary to dehydration which improved with hydration. Subjective: The day of discharge, she felt well, denied any new complaint. NIHSS was 0 Objective: General: Alert, Oriented x3, Cooperative, No apparent distress HEENT: Atraumatic, PERRLA, EOMI, Normocephalic Oral: Moist Mucosa Neck: Supple, No JVD, Negative Carotid Bruits Lungs: Clear to auscultation, Normal air movement Cardiovascular: Regular rate, Regular Rhythm, Normal S1, Normal S2, No murmurs Abdomen: Bowel Sounds Present, Soft, Non Tender, Non-Distended, No Hepato-splenomegaly Extremities: No edema Skin: No rashes, No breakdown Musculoskeletal: No Tenderness to Palpation of Joints or Extremities Lymphatic: No Cervical, Supraclavicular, or Inguinal Adenopathy Neurological: Cranial nerves II-XII grossly intact, Neuro grossly intact Psych/Mental Status: Normal Affect, Appropriate - Physical Exam Vital Signs Temp Pulse Resp BP Pulse Ox 97.1 F L 55 L 17 114/57 L 96 05/01/18 09:33 05/01/18 09:33 05/01/18 09:33 05/01/18 09:33 05/01/18 09:33 Oxygen Delivery Method Room Air Weight: 82.2 kg Body Mass Index (BMI) 32.1 Finger Stick Blood Glucose 101 Intake and Output for Last 24 Hours Intake Total 1071 / 1071 660 / 660 100 / 100 Output Total 550 / 550 350 / 350 Balance 521 / 521 310 / 310 100 / 100 Laboratory Tests Past 24 Hrs Sodium 142 Potassium 4.0 Chloride 109 H Carbon Dioxide 23.0 Anion Gap Discharge Diet: Low fat/ Low Cholesterol, 2000 mg Sodium Diet Discharge Activity: Return to Normal Activity Home Medications: Medications to take at Discharge Calcium Lactate 84 mg PO DAILY 04/28/18 Levothyroxine [Synthroid] 50 mcg PO DAILY 04/28/18 [place]-3 Fatty Acids/Fish Oil [Fish Oil 1,000 mg Capsule] 1 each PO DAILY 04/28/18 B Complex C No.10/Folic Acid [Nephronex Liquid] 900 mcg PO DAILY 04/29/18 Clopidogrel Bisulfate [Plavix] 75 mg PO DAILY #30 tablet 05/01/18 Pravastatin [Pravachol] 80 mg PO DAILY #30 tablet 05/01/18 Following Prescrptions Were Given to Patient: Clopidogrel Bisulfate [Plavix] 75 mg PO DAILY #30 tablet Pravastatin [Pravachol] 80 mg PO DAILY #30 tablet Other Amb Orders: Basic Metabolic Profile (BMP) Time Frame: 3 Days, Location: Laboratory Primary Care Physician: Carol Vargas MD [Primary Care Provider] - Please follow up with your Primary Care Physician in: within 2 weeks Please Follow Up With: David Starr MD When: in 2 weeks Disposition: Home Minutes spent on discharge:: 45 Patient Condition:: Stable Medical Necessity - Tobacco Use Smoking Status: Former smoker Meaningful Use Info Meaningful Use Diagnoses (Choose all that apply): Ischemic CVA - CVA Therapy Assessed for PT,OT and/or ST?: Yes - Ischemic Stroke Antithrombotic order at d/c?: No Reason antithrombotic not ordered: Treatment not Indicated Dx of Atrial fib/flutter?: No Anticoagulant at discharge?: No Reason anticoagulant not ordered: Treatment not Indicated Statins at discharge?: Yes Primary Dx Acute Ischemic CVA?: Yes IV tPA ordered during stay?: No Reason IV t-PA not ordered: Treatment not Indicated Code Visit Inpatient JASPAL: 72074 Disch Hosp 05/01/18 1710 <Electronically signed by Brenda Enriquez MD> Date Brenda Enriquez MD Cosigner Signature (if applicable): Date CC: Brenda Enriquez MD; Carol Vargas MD Signed DISCHARGE INSTRUCTION Observed: 05/01/2018 Status: F Source: [place] 12:15 PM [facility] REPOSITORY [facility] Medical Records Department [address] [place] [address] Instructions for Home/Discharge Instructions 05/01/18 1036 MR#: [id number] Acct: [id number] Name: CASSIE LARES Rep #: [id number] : 1945 72 From: Brenda Enriquez MD PCP: Carol Vargas MD Status: ADM IN ADDENDUM by Brenda Enriquez MD on 05/01/18 at 1215 You have been referred for outpatient therapy. 05/01/18 1215 Date Brenda Enriquez MD cc: Carol Vargas MD; David Starr MD * Signed - Discharge Diagnoses Current Active Problems: Current Active and Chronic Problems Headache (Acute) Reason(s) for Visit for Discharge Instructions: Headache, acute stroke You will use the following diet at home:: Cardiac Your food should be the consistency of: Regular Your liquids should be the consistency of: Regular/Thin Discharge Activity: Return to Normal Activity Additional Instructions: Note your new medications. Continue to follow-up with neurologist, your primary care doctor. You should monitor your blood pressure. Allergies/Adverse Reactions: Allergies No Known Allergies Allergy (Verified 04/28/18 14:31) Medications to take at Discharge Calcium Lactate 84 mg PO DAILY 04/28/18 Levothyroxine [Synthroid] 50 mcg PO DAILY 04/28/18 [place]-3 Fatty Acids/Fish Oil [Fish Oil 1,000 mg Capsule] 1 each PO DAILY 04/28/18 B Complex C No.10/Folic Acid [Nephronex Liquid] 900 mcg PO DAILY 04/29/18 Clopidogrel Bisulfate [Plavix] 75 mg PO DAILY #30 tablet 05/01/18 Pravastatin [Pravachol] 80 mg PO DAILY #30 tablet 05/01/18 The following prescriptions were given: Clopidogrel Bisulfate [Plavix] 75 mg PO DAILY #30 tablet Pravastatin [Pravachol] 80 mg PO DAILY #30 tablet Orders to be completed after discharge: Basic Metabolic Profile (BMP) Time Frame: 3 Days, Location: Laboratory Primary Care Physician: Carol Vargas MD [Primary Care Provider] - Please follow up with your Primary Care Physician in: within 2 weeks Test Results: Test results from this visit will be discussed in further detail at your follow-up appointment, if applicable. Please Follow Up With: David Starr MD When: in 2 weeks Proposed Discharge Date: 05/01/18 05/01/18 1157 <Electronically signed by Brenda Enriquez MD> Date Brenda Enriquez MD CC: Carol Vargas MD; David Starr MD 12 LEAD ELECTROCARDIOGRAM Observed: 05/01/2018 Status: F Source: [place] 10:09 [facility] REPOSITORY [facility] Cardiovascular Services [address] [place] [address] 12 Lead EKG 04/28/18 1432 MR#: [id number] Acct: [id number] Name: CASSIE LARES Rep #: [id number] : 1945 72 From: Adam Roca MD Attending Dr: Brenda Enriquez MD Status: ADM IN Ordering Dr: Berkley Kelley MD Date: 04/28/18 Location: [facility] Sex: F C Admitted: 04/30/18 Test Reason : NEURO Blood Pressure : / mmHG Vent. Rate : 079 BPM Atrial Rate : 079 BPM P-R Int : 176 ms QRS Dur : 086 ms QT Int : 396 ms P-R-T Axes : 060 -32 049 degrees QTc Int : 454 ms Normal sinus rhythm Possible Left atrial enlargement Left axis deviation Poor R wave progression Abnormal ECG Confirmed by ABELINO BENÍTEZ, ADAM ([id number]), acquisitions editor KYAW RUIZ ([id number]) on 05/01/2018 10:08:56 AM Referred By: Queta Veloz Confirmed By:ADAM ROCA MD 05/01/18 1009 Date Adam Roca MD CC: Brenda Enriquez MD; Carol Vargas MD; Berkley Kelley MD; Queta Veloz MD Signed BASIC METABOLIC Collected: 05/01/2018 Status: F Source: [place] PROFILE (BMP) 6:37 AM [facility] REPOSITORY TYPE CODE TESTS RESULT OUT OF RANGE REFERENCE UNITS LAB L501.0100 74-106 mg/dL Normal GLU 99 Result Comment: Please note revised GLUCOSE reference range effective 2017. LAB L501.1000 7-18 mg/dL Normal BUN 18 LAB L501.1100 0.55-1.02 mg/dL High CREAT,SERUM 1.08 Result Comment: The validity of the calculated GFR AND GFRAA in patients over 70 years has not been determined. Clinical correlation is essential. LAB L501.1110 >60 mL/min Low EST GFR 53 Result Comment: Non- GFR Calc LAB L501.1115 >60 mL/min Normal EST GFR - AA 64 Result Comment: GFR Calc LAB L501.1255 ml/min Normal Estimated CRCL 37.80 LAB L501.1300 10-20 RATIO Normal BUN/CRE 16.7 LAB L501.2200 8.5-10 mg/dL Normal .1 CA 8.6 LAB L501.5300 136-14 mmol/L Normal 5 NA 142 LAB L501.5600 3.5-5. mmol/L Normal 1 K 4.0 LAB L501.5900 98-107 mmol/L High CL 109 LAB L501.6100 21.0-3 mmol/L Normal 2.0 CO2 23.0 LAB L501.6200 5-15 Normal GAP 10 Performed By: #### L500.2500 #### [facility] [address] [facility]. [place], [place], [address] ECHO, COMPLETE W/ Observed: 04/30/2018 Status: F Source: [place] CONTRAST 5:05 PM [facility] REPOSITORY [facility] Cardiovascular Services [address] [place] [address] Echo Complete W/ Contrast 04/30/18 1322 MR#: [id number] Acct: [id number] Name: CASSIE LARES Rep #: [id number] : 1945 72 From: Robb Segura MD Attending Dr: Brenda Enriquez MD Status: ADM IN Ordering Dr: Queta Vleoz MD Date: 04/30/18 Location: [facility] Sex: F C Admitted: 04/30/18 [id number] ECHO [id number] TAG_START Cardiovascular Services Echocardiogram [address] [id number] Ordering Physician: Queta Veloz TAG_ENDED TAG_START Name: CASSIE LARES Study Date: 04/30/2018 01:22 PM BP: 125/66 mmHg Patient Location: [facility] : 1945 Gender: Female Height: 63 in Age: 72 yrs Weight: 177 lb History: HTN, Hypothyroid, Former Smoker TAG_ENDED Reason For Study: HTN Procedure This was a 2D Doppler, Color Flow transthoracic echocardiogram. Contrast injection was performed. Exam performed portable in patient room. Left Ventricle Mild concentric left ventricular hypertrophy. The estimated ejection fraction is 65 %. Stage 1 diastolic dysfunction. No regional wall motion abnormalities noted. TAG_START I Segments Size 1-2 small X - Cannot 1 - Normal 2 - 3 - Akinetic 4 - Dyskinetic3-5 moderate Interpret Hypokinetic 6-14 large 5 - Aneurysmal 15-16 diffuse TAG_ENDED Right Ventricle Normal size and thickness. Normal systolic function. Atria Normal left atrium. Normal right atrium. Normal atrial septum. Bubble contrast study negative for right to left interatrial shunt. Mitral Valve The mitral valve is structurally normal. No prolapse or stenosis seen. Trivial mitral valve insufficiency. Tricuspid Valve Normal tricuspid valve. Trivial tricuspid valve insufficiency. Right ventricular systolic pressure estimated to be 31 mmHg. Aortic Valve Trisinus/trileaflet aortic valve. Pulmonic Valve Normal pulmonic valve. Great Vessels Normal aortic root. Normal arch. Normal inferior vena cava. Inferior vena cava collapse with sniff. Pericardium/Pleural No pericardial effusion. Medication Diluted definity 2ml given slow IV push to enhance endocardial definition. Performed a rapid injection of agitated mix of 9 cc saline and 1cc air to assess for atrial septal defect. MMode/2D Measurements AND Calculations LVIDd: 4.2 cm IVSd: 1.2 cm Ao root diam: 3.2 cm LVIDs: 2.1 cm LVPWd: 1.5 cm LA dimension: 3.4 cm FS: 49.2 % LAV(MOD-bp): 38.9 ml LA A4 area: 15.8 cm2 LAV(MOD-bp) Indexed: 21.2 ml/m2 LAV(MOD-sp2): 36.4 ml LAV(MOD-sp4): 40.8 ml Time Measurements MV dec time: 0.22 sec Doppler Measurements AND Calculations MV E max jesus: 84.9 cm/sec Lat Peak E' Jesus: 6.1 cm/sec Med Peak E' Jesus: 7.6 cm/sec MV A max jesus: 124.8 cm/sec E/E' lat: 14.0 E/E' med: 11.2 MV E/A: 0.68 MV V2 max: 138.7 cm/sec MV P1/2t max jesus: 117.5 cm/sec Ao V2 max: 165.6 cm/sec MV max P.7 mmHg MV P1/2t: 68.7 msec Ao max P.0 mmHg MV V2 mean: 58.0 cm/sec MV dec slope: 500.9 cm/sec2 Ao V2 mean: 107.3 cm/sec MV mean P.8 mmHg MVA(P1/2t): 3.2 cm2 Ao mean P.3 mmHg MV V2 VTI: 36.9 cm Ao V2 VTI: 34.6 cm LV V1 max: 115.1 cm/sec PA V2 max: 79.0 cm/sec TR max jesus: 253.7 cm/sec LV V1 max P.3 mmHg TR max P.8 mmHg LV V1 mean P.7 mmHg LV V1 mean: 76.0 cm/sec LV V1 VTI: 26.7 cm Interpretation Summary Mild concentric left ventricular hypertrophy. The estimated ejection fraction is 65 %. Stage 1 diastolic dysfunction. Trivial tricuspid valve insufficiency. Right ventricular systolic pressure estimated to be 31 mmHg. Trivial mitral valve insufficiency. Bubble contrast study negative for right to left interatrial shunt. There is no comparison study available. Contrast injection was performed. 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 CONSULTATION Observed: 04/30/2018 Status: F Source: [place] 11:51 AM [facility] REPOSITORY [facility] Medical Records Department [address] [place] [address] Consultation 04/30/18 1113 MR#: [id number] Acct: [id number] Name: CASSIE LARES Rep #: [id number] : 1945 72 From: David Starr MD PCP: Carol Vargas MD Status: ADM IN Location: [place] [address] Reason for Consult Date of Consultation: 04/30/18 Reason for Consultation: cva History of Present Illness: The patient is a 72 year old F right handed white female who two weeks ago noted left arm abormal sensation. two days ago noted left vision changes associated with headache and elevated blood pressure. couldnt tolerate asa in the past due to gi upset. no tobacco, quit 50yrs ago. admits to snoring. admits to EDS. naps approximately 3-4x/week. also had headache, now improved. The patient is a 72 year old F with a history of hypothyroidism and migraines. She last had a migraine about 15 years ago. She was admitted through the ED on 04/28/2018 with a complaint of 4-day history of headache. Headache was left-sided, associated with flashes of light. She thought was due to her migraine headaches and would get better. However the headache persisted and so she decided coming to the ED today. She denied any neck pain or photophobia, any chest pain, any blurred vision, any palpitations, any abdominal pain, any diarrhea vomiting. In the ED, blood pressure was found to be elevated, 218/96. Brain CT was negative for any acute intracranial pathology. Chemistry was significant for creatinine of 1.23 and CBC showed hemoglobin of 16.9. She is been admitted to be managed for hypertensive emergency. 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 Lives: Spouse/ Significant Other Smoking Status: Former smoker Alcohol: None - *Family History Maternal History Items: Hypertension Paternal History Items: No pertinent history Review of Systems Constitutional: Denies: Chills, Fever, Weight Change HEENT: Denies: Head Aches, Sinus Congestion, Sinus Drainage Cardiovascular: Denies: Chest Pain, Palpitations Respiratory: Denies: Cough, Shortness of breath at rest, Sputum production Gastrointestinal: Denies: Abdominal Pain, Nausea, Vomiting Genitourinary: Denies: Dysuria Musculoskeletal: Denies: Joint Pain, Joint Tenderness Skin: Denies: Rash, Wounds Neurological: Denies: Numbness, Tingling, Focal weakness Psychiatric: Denies: Anxiety, Depression, Homicidal Ideations, Suicidal Ideations Hematologic/ Lymphatic: Denies: Easy Bruising, Easy Bleeding Patient Problems: Active and Suspected Problems Headache (Acute) - Physical Exam General: Alert, Oriented x3, Cooperative, No apparent distress HEENT: Atraumatic, PERRLA, EOMI Musculoskeletal: No Tenderness to Palpation of Joints or Extremities Neurological: Cranial nerves II-XII grossly intact, Deep Tendon Reflexes 2+/4 and Symmetrical, Neuro grossly intact, Motor Exam 5/5 strength throughout, Sensory exam intact to light touch and pain, Coordination normal, Gait narrow based and stable Psych/Mental Status: Normal Affect, Appropriate Vital Signs Temp Pulse Resp BP Pulse Ox 36.8 C 57 L 18 122/66 H 97 04/30/18 09:44 04/30/18 09:44 04/30/18 09:44 04/30/18 09:44 04/30/18 09:44 Oxygen Delivery Method Room Air Weight: 82.214 kg Body Mass Index (BMI) 32.1 Finger Stick Blood Glucose 101 Intake and Output for Last 24 Hours Intake Total 255 / 255 1071 / 1071 Output Total 500 / 500 550 / 550 150 / 150 Balance -245 / -245 521 / 521 -150 / -150 Laboratory Tests Past 24 Hrs Sodium 140 Potassium 3.8 Chloride 108 H Carbon Dioxide 22.0 Anion Gap 10 Current Home Med List Medication Instructions Recorded Confirmed Type Current Medications Acetaminophen 650 mg 04/28/18 19:12 Tylenol PO Amlodipine Besylate 10 mg 04/28/18 19:12 04/30/18 10:00 mri reviewed, right acute/subacute thalamic infarct, right acute occipital infarct cta reviwed, no stenosis Assessment/Plan All Active Problems Headache (Acute) CVA, by history and mri she appears to have two recent infarcts approximately two weeks apart echo tele outpt psg plavix (cant tolerate asa) statin pt/ot/sp 04/30/18 1151 <Electronically signed by David Starr MD> Date David Starr MD Cosigner Signature (if applicable): Date CC: Carol Vargas MD; Queta Veloz MD; David Starr MD Signed BASIC METABOLIC Collected: 04/30/2018 Status: F Source: [place] PROFILE (BMP) 5:42 AM [facility] REPOSITORY TYPE CODE TESTS RESULT OUT OF RANGE REFERENCE UNITS LAB L501.0100 74-106 mg/dL Normal GLU 106 Result Comment: Fasting Glucose result from 100 to 125 mg/dL suggests IMPAIRED HOMEOSTASIS per A.D.A. criteria. Please note revised GLUCOSE reference range effective 2017. LAB L501.1000 7-18 mg/dL High BUN 25 LAB L501.1100 0.55-1.02 mg/dL High CREAT,SERUM 1.19 Result Comment: The validity of the calculated GFR AND GFRAA in patients over 70 years has not been determined. Clinical correlation is essential. LAB L501.1110 >60 mL/min Low EST GFR 47 Result Comment: Non- GFR Calc LAB L501.1115 >60 mL/min Low EST GFR - AA 57 Result Comment: GFR Calc LAB L501.1255 ml/min Normal Estimated CRCL 34.31 LAB L501.1300 10-20 RATIO High BUN/CRE 21.0 LAB L501.2200 8.5-10 mg/dL Low .1 CA 8.4 LAB L501.5300 136-14 mmol/L Normal 5 NA 140 LAB L501.5600 3.5-5. mmol/L Normal 1 K 3.8 LAB L501.5900 98-107 mmol/L High CL 108 LAB L501.6100 21.0-3 mmol/L Normal 2.0 CO2 22.0 LAB L501.6200 5-15 Normal GAP 10 Performed By: #### L500.2500 #### [facility] [address] [facility] [place], [address] HEMOGLOBIN A1C Collected: 04/30/2018 Status: F Source: [place] 5:42 AM [facility] REPOSITORY Order Comment: Comments: as add on test TYPE CODE TESTS RESULT OUT OF RANGE REFERENCE UNITS LAB L501.9985 4.2-6.3 % Normal HGB A1C 5.9 Performed By: #### L501.9985 #### [facility] [address] [facility] [place], [address] BRAIN WITHOUT Observed: 04/29/2018 Status: F Source: [place] CONTRAST 9:51 PM [facility] REPOSITORY [facility] Imaging Services [address] [place] [address] Brain without Contrast MR#: [id number] Acct: [id number] Name: LIYACASSIE C Rep #: [id number] : 1945 F 72 From: Kash Hernández PCP: Carol Vargas MD Status: ADM ADALID Study: Brain without Contrast Date of Exam: 04/30/18 Exam# [id number] Ordering Dr: Era Arango STUDY: MRI BRAIN WITHOUT CONTRAST REASON FOR EXAM: Female, 72 years old. headache, lt sided numbness,weak. TECHNIQUE: Standardized multiplanar fat and water weighted pulse sequences were obtained. # of Images: [id number] COMPARISON: April 28, 2018 FINDINGS: Normal size of the ventricles and extra-axial spaces for the patient's age. There are a limited number of small white matter hyperintensities, distributed throughout the deep white matter tracts of the cerebral hemispheres, consistent with mild chronic white matter ischemic changes. There is a 2 cm area of restricted diffusion involving the right occipital lobe. There are foci of restricted diffusion of the right thalamus and hippocampus as well. There is drop of signal on ADC map, consistent with acute infarctions. There is a left thalamic chronic likely lacunar infarct as well. Normal bilateral basal ganglia. There is no extra-axial fluid accumulation. Normal flow voids within the major intracranial circulation suggesting patency by spin echo criteria. Normal sella turcica, pituitary gland, infundibular stalk, optic chiasm and hypothalamus. Normal tectal plate and pineal gland. Normal midbrain, clement and medulla. Normal cerebellum. Normal basal cisterns. Normal bilateral temporal bones. Normal bilateral internal auditory canals. MRI/Brain without Contrast IMPRESSION: Acute right occipital and thalamic infarctions. N.B. : The above information has been verbally conveyed by Kash Hernández MD to Anh Jimenez RN, RN, on 04/30/2018 10:45:10 (ET). Electronically Signed: Kash Hernández MD at 9:52 EDT Tel , Service support , CC: Carol Vargas MD; Era Arango Dry Mill Operator: Signed CBC W/DIFF, AUTOMATED Collected: 04/29/2018 Status: F Source: [place] 6:00 AM [facility] REPOSITORY TYPE CODE TESTS RESULT OUT OF RANGE REFERENCE UNITS LAB L100.1000 4.4-11.0 K/mm3 Normal WBC 10.7 LAB L100.1200 4.2-5.4 M/mm3 Normal RBC 4.96 LAB L100.1300 12.0-15.0 g/dl Normal HGB 14.9 LAB L100.1400 37-47 % Normal HCT 44.4 LAB L100.1500 81-99 fL Normal MCV 89.5 LAB L100.1600 27.0-32.0 pg Normal MCH 30.0 LAB L100.1700 32-36 g/gl Normal MCHC 33.6 LAB L100.1810 11.6-14.6 % Normal RDW CV 13.0 LAB L100.1820 35.1-43.9 fl Normal RDW SD 41.9 LAB L100.1900 150-450 K/mm3 Normal PLT 271 LAB L100.2000 6.2-12.0 fl Normal MPV 10.0 LAB L100.2100 47-70 % Normal NEUT% 63.1 LAB L100.2200 19-41 % Normal LY% 29.6 LAB L100.2300 0-10 % Normal MONO% 5.8 LAB L100.2400 0-5 % Normal EO% 1.1 LAB L100.2500 0-1 % Normal BASO% 0.3 LAB L100.2550 0.0-0.9 % Normal IM GRAN % 0.100 Result Comment: IG% - Immature Granulocytes (promyelocytes, myelocytes and metamyelocytes) > 1% indicates that a LEFT SHIFT is Present. LAB L100.2620 2.0-7.7 X10 3/uL Normal Absolute Neut 6.8 LAB L100.2720 0.83-4.51 X10 3/ul Normal Absolute Lymph 3.17 Performed By: #### L100.0100 #### [facility] [address] [place], [place], [address] BASIC METABOLIC Collected: 04/29/2018 Status: F Source: [place] PROFILE ([facility]) 6:00 AM [facility] REPOSITORY TYPE CODE TESTS RESULT OUT OF RANGE REFERENCE UNITS LAB L501.0100 74-106 mg/dL Normal GLU 74 Result Comment: Please note revised GLUCOSE reference range effective 2017. LAB L501.1000 7-18 mg/dL Normal BUN 14 LAB L501.1100 0.55-1.02 mg/dL Normal CREAT,SERUM 1.00 Result Comment: The validity of the calculated GFR AND GFRAA in patients over 70 years has not been determined. Clinical correlation is essential. LAB L501.1110 >60 mL/min Low EST GFR 58 Result Comment: Non- GFR Calc LAB L501.1115 >60 mL/min Normal EST GFR - AA 70 Result Comment: GFR Calc LAB L501.1255 ml/min Normal Estimated CRCL 40.83 LAB L501.1300 10-20 RATIO Normal BUN/CRE 14.1 LAB L501.2200 8.5-10 mg/dL Normal .1 CA 8.7 LAB L501.5300 136-14 mmol/L Normal 5 NA 142 LAB L501.5600 3.5-5. mmol/L Normal 1 K 3.8 LAB L501.5900 98-107 mmol/L Normal CL 107 LAB L501.6100 21.0-3 mmol/L Normal 2.0 CO2 23.0 LAB L501.6200 5-15 Normal GAP 12 Performed By: #### L500.2500 #### [facility] [address] [place], [address] LIPID PROFILE Collected: 04/29/2018 Status: F Source: [place] 6:00 AM [facility] REPOSITORY TYPE CODE TESTS RESULT OUT OF RANGE REFERENCE UNITS LAB L501.4900 200 mg/dL High CHOL 287 Result Comment: <200 mg/dL Desirable 200-240 mg/dL Borderline >240 mg/dL High Risk LAB L501.5000 mg/dL Normal TRIG 132 Result Comment: The drugs N-Acetylcysteine and Metamizole may falsely depress this assay. Serum Triglycerides Reference Interval Normal <150 mg/dL Borderline high 150 - 199 mg/dL High 200 - 499 mg/dL Very High > or = 500 mg/dL LAB L501.6400 mg/dL Normal HDL 41 Result Comment: The drugs N-Acetylcysteine and Metamizole may falsely depress this assay. Reference Range HDL <40 mg/dL Low HDL Cholesterol HDL >or= 60 mg/dL High HDL Cholesterol LAB L501.6500 0-130 mg/dL High LDL 220 LAB L501.6600 5-40 mg/dL Normal VLDL 26 Performed By: #### L500.4100 #### [facility] [address] [place], [address] EMERGENCY DEPARTMENT Observed: 04/28/2018 Status: F Source: [place] SUMMARY 11:04 PM [facility] REPOSITORY [facility] Medical Records Department [address] [place] [address] Emergency Department Summary 04/28/18 1511 MR#: [id number] Acct: [id number] Name: CASSIE LARES Rep #: [id number] : 1945 72 From: Berkley Kelley MD PCP: Carol Vargas MD Status: ADM IN - ER Visit Summary Date of Service: 04/28/18 Chief Complaint: Headache, weakness History of Present Illness: The patient is a 72 F who reports onset of migraine headache 5 days ago located behind her eyes. She is a history of migraines but states it has been approximately 20 years since she had a migraine. She reports feeling mild nausea since that time. Headache has been waxing and waning since that time, seeming to improve when she sleeps. She noted a numb sensation to her left leg on the . She states her left arm feels like it is going to fall asleep, but is not numb at this time. She did have some pain to her right face yesterday that is resolved. She now feels a tingling sensation around her lips, worse in the left side. She has not had any trouble swallowing. She denies any problems with her speech. Patient does admit to a fall on the but denies striking her head. Physical Examination: Vital signs in triage include a blood pressure of 218/96, temperature 97.8, heart rate 74, respiratory rate 17, pulse ox 98% on room air. When I enter the room for her exam her blood pressure is 153/80. Head neck examination is grossly unremarkable. She does complain of a black spot over the lateral vision of her left eye only. Pupils are equal and reactive and extraocular movements are intact. Heart is regular rate and rhythm. Lung sounds are clear. Abdomen is soft and nontender. Neuro exam reveals an NIH score of 1. She receives this point for mild drift of her left arm on testing. Test Results: CBC was normal white count with hemoglobin is 16.9 and hematocrit of 48.2. Chemistry studies are significant for BUN of 17 and a creatinine 1.23. Coags normal. CT head shows mild atrophy with no visualized evidence of acute hemorrhage, infarct, or edema. CTA of the head shows hypoplastic versus possible mild stenosis of the right mid NUCLEAR RADIATION ENGINEER. Recommend MRI. CT of the neck shows normal carotid and vertebral arteries. Emergency Department Course and Treatment: Patient's blood pressure has remained in the 150-170 systolic range without any further intervention. I discussed with her the possibility of her symptoms being caused by migraine, blood pressure, or stroke. Patient will be admitted for further workup and evaluation. Treatment Plan: [] Disposition: Admit Impression: 1. Left arm drift 2. Migraine 3. Hypertension This note was generated with Simpleshow dictation software. It may contain incorrect words, spelling, and punctuation that were not noted in review of the chart prior to signing ED Disposition - Plan for ED Patient: Chief Complaint: Numb/Ting Referrals: Carol Vargas MD [Primary Care Provider] - What to do if you have Problems For any increased pain, shortness of breath, bleeding, nausea or vomiting, chest pain, or any unexpected problems, contact your Primary Care Provider. Call [facility] ([phone]) or report to the closest Emergency Room. Call 911 if necessary. 04/28/18 6912 <Electronically signed by Berkley Kelley MD> Date Berkley Kelley MD Cosigner Signature (If Indicated): Date CC: Carol Vargas MD HISTORY AND PHYSICAL Observed: 04/28/2018 Status: F Source: [place] EXAM 7:04 PM [facility] [place] RE[facility] Medical Records Department [address] [place] [address] History and Physical 04/28/18 1747 MR#: [id number] Acct: [id number] Name: CASSIE LARES Rep #: [id number] : 1945 72 From: Queta Veloz MD PCP: Carol Vargas MD Status: ADM IN Y Location: [place] [address] Problem List (1) Headache Status: Acute History of Present Illness Date of Admission: 04/28/18 Chief Complaint: headache The patient is a 72 year old F with a history of hypothyroidism and migraines. She last had a migraine about 15 years ago. She was admitted through the ED on 04/28/2018 with a complaint of 4-day history of headache. Headache was left-sided, associated with flashes of light. She thought was due to her migraine headaches and would get better. However the headache persisted and so she decided coming to the ED today. She denied any neck pain or photophobia, any chest pain, any blurred vision, any palpitations, any abdominal pain, any diarrhea vomiting. In the ED, blood pressure was found to be elevated, 218/96. Brain CT was negative for any acute intracranial pathology. Chemistry was significant for creatinine of 1.23 and CBC showed hemoglobin of 16.9. She is been admitted to be managed for hypertensive emergency. [] Past Medical History Allergies No Known Allergies Allergy (Verified 04/28/18 14:31) Home Medications: Ambulatory Orders Medication Instructions Recorded [place] 04/28/18 B Complex C No.10/Folic Acid 04/28/18 Surgical History: no surgical history Psychiatric History: No pertinent psych hx STOCK HOLDER History: No pertinent STOCK HOLDER history Lives: Spouse/ Significant Other Smoking Status: Former smoker Alcohol: None - *Family History Maternal History Items: Hypertension Paternal History Items: No pertinent history Review of Systems Constitutional: Denies: Chills, Fever, Weight Change Eyes: Reports: Vision Change - flashes of light. Denies: Blurred vision, Double vision HEENT: Denies: Head Aches, Sinus Congestion, Sinus Drainage Cardiovascular: Denies: Chest Pain, Chest Pressure, Chest Tightness, Orthopnea, Palpitations, Paroxysmal Noc. Dyspnea, Syncope Respiratory: Denies: Cough, Shortness of breath at rest, Sputum production Gastrointestinal: Denies: Abdominal Pain, Nausea, Vomiting Genitourinary: Denies: Dysuria Musculoskeletal: Denies: Joint Pain, Joint Tenderness Skin: Denies: Rash, Wounds Neurological: Reports: Headaches - left sided. Denies: Blurred vision, Double vision, Focal weakness, Numbness, Tingling Psychiatric: Denies: Anxiety, Depression, Homicidal Ideations, Suicidal Ideations Hematologic/ Lymphatic: Denies: Easy Bruising, Easy Bleeding VTE Information - Inpt Only VTE Present on Admission: No VTE Pharm Prophylaxis ordered?: Yes Patient Problems: Active and Suspected Problems Headache (Acute) - Physical Exam General: Alert, Oriented x3, Cooperative, No apparent distress HEENT: Atraumatic, PERRLA, EOMI, Normocephalic Oral: Moist Mucosa Neck: Supple, No JVD, Negative Carotid Bruits Lungs: Clear to auscultation, Normal air movement, No rhonchi, No wheeze, No rales Cardiovascular: Regular rate, Regular Rhythm, Normal S1, Normal S2, No murmurs Abdomen: Bowel Sounds Present, Soft, Non Tender, Non-Distended, No Hepato-splenomegaly Extremities: No clubbing, No cyanosis, No edema, Capillary Refill Less than 3 Seconds Skin: No rashes, No breakdown Musculoskeletal: No Tenderness to Palpation of Joints or Extremities Lymphatic: No Cervical, Supraclavicular, or Inguinal Adenopathy Neurological: Cranial nerves II-XII grossly intact, Neuro grossly intact, Motor Exam 5/5 strength throughout Psych/Mental Status: Normal Affect, Appropriate, Alert and oriented to time, place, person, mood and affect Vital Signs Temp Pulse Resp BP Pulse Ox 97.8 F 83 24 H 167/78 H 96 04/28/18 14:21 04/28/18 16:30 04/28/18 16:30 04/28/18 16:30 04/28/18 16:30 Oxygen Delivery Method Room Air Weight: 179 lb 14.355 oz Body Mass Index (BMI) 31.8 Finger Stick Blood Glucose 101 Laboratory Tests Past 24 Hrs POC Glucose POC Glucose [address] 04/28/18 15:05 IMPRESSION: Mild atrophy. No visualized evidence of acute hemorrhage infarct or edema. Electronically Signed: Unique Lynch MD at 15:48 EDT Tel , Service support , Chest X-Ray 04/28/18 15:29 IMPRESSION: No acute cardiopulmonary process. Electronically Signed: Lisa Siu MD at 16:10 EDT Tel , Service support , Neck CTA 04/28/18 15:59 IMPRESSION: Normal bilateral cervical carotid and vertebral arteries. Degenerative change of the cervical spine. 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 Given clinical history recommend consideration for follow- up MRI. Otherwise no evidence of visualized stenotic lesion no evidence of aneurysmal dilatation. Electronically Signed: Unique Lynch MD at 17:20 EDT Tel , Service support , Assessment/Plan All Active Problems Headache (Acute) 72-year-old female admitted with a complaint of 4-day history of left-sided headache. 1. Hypertensive emergency * admitted with elevated BP which peaked at 218/96mmhg * hasnt had a migrained headache in >10 years. * EKG showed no acute ST changes * CXR showed no acute cardiopulmonary process. * admit to PCU with telemetry * BP had come down to 167/79 at time of review * not on any hypertensives. * Will start on PO amlodipine 10mg daily and lisinopril 10mg daily * get 2D echo. * IV hydralazine 10mg q6prn * 2. Migraine headaches * Has not had a migraine headache and so many years. * CT brain: Mild atrophy with no visualized evidence of acute hemorrhage, infarct or edema. * CTA of the neck: Hypoplastic versus possible mild stenosis of the mid right NUCLEAR RADIATION ENGINEER. MRI recommended. Otherwise no other lesion noted. * Give Tylenol as needed * 3. AK I: Creatinine is 1.23. Baseline not known. Will hydrate with half-normal saline and monitor. 4. Hypothyroidism: on synthroid. DVT prophylaxis: heparin Code status: * Patient and counseled extensively about different types of CODE STATUS including full code, DNR CCA and DNR CCA. Patient couldnt make up her mind about her code status, as she stated she had never thought about it. She said she didnt think she wanted to be resuscitated, but couldnt decide between DNRCC and DNRCCA. Wants more time to think about it and decide. Total lycv-iw-[id number] time 20 minutes. Code Visit Inpatient E AND M: 92793 Init Hosp L3 Procedures: 15671 Advncd Care Plan 30 Min 04/28/18 1904 <Electronically signed by Queta Veloz MD> Date Queta Veloz MD Cosigner Signature: Date (if applicable) CC: Carol Vargas MD; Queta Veloz MD Signed CTA HEAD W/WO Observed: 04/28/2018 Status: F Source: [place] CONTRAST 3:59 PM [facility] RE[facility] Imaging Services [address] [place] [address] CTA Head W/WO Contrast MR#: [id number] Acct: [id number] Name: CASSIE LARES Rep #: [id number] : 1945 F 72 From: Unique Lynch MD PCP: Carol Vargas MD Status: REG ER Study: CTA Head W/WO Contrast Date of Exam: 04/28/18 Exam# [id number] Ordering Dr: Berkley Kelley MD STUDY: CTA OF THE BRAIN REASON FOR EXAM: Female, 72 years old. Left-sided weakness dizziness RADIATION DOSAGE (If Supplied By Facility): CTDIvol = ( ) mGy, DLP = ( ) mGycm TECHNIQUE: CT angiography was performed with a multi-detector CT scanner. Data acquisition was obtained from the skull base through the vertex following intravenous administration of ml of . MIP images were reconstructed from the axial data set. Post-processing of the angiographic images was performed, with multiplanar reformation and 3D reconstruction. Individualized dose optimization techniques were used for this CT. COMPARISON: CT scan head April 28, 2018 FINDINGS: Normal bilateral petrous carotid arteries. There is calcified plaque formation of the right cavernous carotid artery, without a cross-sectional luminal stenosis. There is calcified plaque formation of the left cavernous carotid artery, without a cross-sectional luminal stenosis. Normal right A1 segments of the anterior cerebral artery. Normal left A1 segments of the anterior cerebral artery. There is non-visualization of the anterior communicating artery (ACOM). Normal bilateral A2 segments of the anterior cerebral arteries. Normal right M1 and M2 segments of the middle cerebral arteries, with a normal M1 bifurcation. Normal left M1 and M2 segments of the middle cerebral arteries, with a normal M1 bifurcation. Normal right posterior communicating artery (PCOM). Normal left posterior communicating artery (PCOM). Normal bilateral vertebral arteries. Normal basilar artery with a normal basilar bifurcation. The visualized bilateral superior cerebellar (SCA) arteries are normal. The mid segment of the right side NUCLEAR RADIATION ENGINEER is either hypoplastic and not well visualized on 3-D reconstructed images. The proximal NUCLEAR RADIATION ENGINEER and distal right-sided PTC is visualized. There is a diminutive but patent appearing left-sided NUCLEAR RADIATION ENGINEER. There is no demonstrated aneurysm of the [place] of [place]. There is no demonstrated abnormality of the visualized brain. CT/CTA Head W/WO Contrast IMPRESSION: Hypoplastic versus possible mild stenosis of the mid right- sided NUCLEAR RADIATION ENGINEER. Given clinical history recommend consideration for follow- up MRI. Otherwise no evidence of visualized stenotic lesion no evidence of aneurysmal dilatation. Electronically Signed: Unique Lynch MD at 17:20 EDT Tel , Service support , CC: Carol Vargas MD; Berkley Kelley MD Dry Mill Operator: Signed CTA NECK W/WO Observed: 04/28/2018 Status: F Source: [place] CONTRAST 3:59 PM [facility] RE[facility]ORY [facility] Imaging Services [address] [address] CTA Neck W/WO Contrast MR#: [id number] Acct: [id number] Name: CASSIE LARES Rep #: [id number] : 1945 F 72 From: Unique Lynch MD PCP: Carol Vargas MD Status: REG ER Study: CTA Neck W/WO Contrast Date of Exam: 04/28/18 Exam# [id number] Ordering Dr: Berkley Kelley MD STUDY: CTA NECK WITH CONTRAST REASON FOR EXAM: Female, 72 years old. Sided weakness RADIATION DOSAGE (If Supplied By Facility): CTDIvol = ( 18.39 ) mGy, DLP = ( 721.79 ) mGycm TECHNIQUE: CT angiography with multi-detector data acquisition was performed from the aortic arch to the skull base following intravenous administration of 100 ml of Isovue 370 contrast. MIP images were reconstructed from the axial data set. Post-processing of the angiographic images was performed, with multiplanar reformation and 3D reconstruction. Individualized dose optimization techniques were used for this CT. COMPARISON: None. FINDINGS: AORTIC ARCH: Is minimal calcification of the visualized aortic arch. There is a common takeoff of the left subclavian and vertebral artery. RIGHT CAROTID ARTERIES: There is atherosclerotic tortuous elongation of the right common carotid artery. Normal right common carotid bulb. Normal origin of the right internal carotid (ICA) artery without a hemodynamically significant stenosis. Normal visualized cervical portion of the right internal carotid artery. Normal origin of the right external carotid artery (ECA). LEFT CAROTID ARTERIES: Normal left common carotid artery (CCA). Normal left common carotid bulb. Normal origin of the left internal carotid (ICA) artery without a hemodynamically significant stenosis. Normal visualized cervical portion of the left internal carotid artery. Normal origin of the left external carotid artery (ECA). VERTEBRAL ARTERIES: Normal bilateral vertebral arteries. There is visualized multilevel degenerative changes in the cervical spine. There is multilevel posterior ligamentous osteophyte formation with effacement of the anterior thecal sac. Especially seen at the level of C4. There is a broad disc osteophyte complex C5-C6 with moderate neural foraminal narrowing. There is posterior osteophytosis C5-C6. There is visualized groundglass opacity within the lung apices. CT/CTA Neck W/WO Contrast IMPRESSION: Normal bilateral cervical carotid and vertebral arteries. Degenerative change of the cervical spine. Electronically Signed: Unique Lynch MD at 17:28 EDT Tel , Service support , CC: Carol Vargas MD; Berkley Kelley MD Dry Mill Operator: Signed BRAIN/HEAD WITHOUT Observed: 04/28/2018 Status: F Source: [place] CONTRAST 3:08 PM [facility] RE[facility] Imaging Services [address] [place] [address] Brain/Head without Contrast MR#: [id number] Acct: [id number] Name: CASSIE LARES Rep #: [id number] : 1945 F 72 From: Unique Lynch MD PCP: Carol Vargas MD Status: REG ER Study: Brain/Head without Contrast Date of Exam: 04/28/18 Exam# [id number] Ordering Dr: Berkley Kelley MD STUDY: CT BRAIN WITHOUT CONTRAST REASON FOR EXAM: Female, 72 years old. Headache for 2 days dizziness migraines RADIATION DOSAGE (If Supplied By Facility): CTDIvol = ( 44.99 ) mGy, DLP = ( 745.49 ) mGycm TECHNIQUE: Transaxial CT imaging of the brain was performed without administration of intravenous contrast material. Individualized dose optimization techniques were used for this CT. COMPARISON: None. FINDINGS: Normal soft tissue structures. Normal calvarium. There is calcification of the cavernous carotid arteries. There is mild cerebral atrophy with widening of the extra- axial spaces and ventricular dilatation. There are areas of decreased attenuation within the white matter tracts of the supratentorial brain, consistent with microvascular disease changes. There is a punctate low attenuation within the right putamen compatible with old lacunar infarct. Normal brainstem. There is mild cerebellar atrophy. There is no intracranial hemorrhage. There are no findings of an acute ischemic infarction. Normal visualized paranasal sinuses. CT/Brain/Head without Contrast IMPRESSION: Mild atrophy. No visualized evidence of acute hemorrhage infarct or edema. Electronically Signed: Unique Lynch MD at 15:48 EDT Tel , Service support , CC: Carol Vargas MD; Berkley Kelley MD Dry Mill Operator: Signed CHEST 1 VIEW Observed: 04/28/2018 Status: F Source: [place] 3:08 PM [facility] RE[facility] Imaging Services [address] [place] [address] Chest 1 View MR#: [id number] Acct: [id number] Name: CASSIE LARES Rep #: [id number] : 1945 F 72 From: Lisa Siu MD PCP: Carol Vargas MD Status: REG ER Study: Chest 1 View Date of Exam: 04/28/18 Exam# [id number] Ordering Dr: Berkley Kelley MD STUDY: X-RAY CHEST REASON FOR EXAM: Female, 72 years old. Headache TECHNIQUE: Single frontal view of the chest. COMPARISON: None. FINDINGS: There is no focal consolidation. Normal size heart. Normal mediastinum and wilfrid. Normal visualized pulmonary arteries. Normal visualized aortic arch and descending thoracic aorta. There are diffuse degenerative changes of the visualized thoracic spine. Normal visualized ribs, clavicles, and shoulders. There is no demonstrated abnormality of the visualized soft tissue structures of the upper abdomen. RAD/Chest 1 View IMPRESSION: No acute cardiopulmonary process. Electronically Signed: Lisa Siu MD at 16:10 EDT Tel , Service support , CC: Carol Vargas MD; Berkley Kelley MD Dry Mill Operator: Signed CBC W/DIFF, AUTOMATED Collected: 04/28/2018 Status: F Source: [place] 2:45 PM [facility] REPOS[facility] TYPE CODE TESTS RESULT OUT OF RANGE REFERENCE UNITS LAB L100.1000 4.4-11.0 K/mm3 Normal WBC 10.4 LAB L100.1200 4.2-5.4 M/mm3 High RBC 5.51 LAB L100.1300 12.0-15.0 g/dl High HGB 16.9 LAB L100.1400 37-47 % High HCT 48.2 LAB L100.1500 81-99 fL Normal MCV 87.5 LAB L100.1600 27.0-32.0 pg Normal MCH 30.7 LAB L100.1700 32-36 g/gl Normal MCHC 35.1 LAB L100.1810 11.6-14.6 % Normal RDW CV 12.8 LAB L100.1820 35.1-43.9 fl Normal RDW SD 41.4 LAB L100.1900 150-450 K/mm3 Normal PLT 300 LAB L100.2000 6.2-12.0 fl Normal MPV 9.7 LAB L100.2100 47-70 % High NEUT% 74.4 LAB L100.2200 19-41 % Normal LY% 19.3 LAB L100.2300 0-10 % Normal MONO% 5.1 LAB L100.2400 0-5 % Normal EO% 0.8 LAB L100.2500 0-1 % Normal BASO% 0.3 LAB L100.2550 0.0-0.9 % Normal IM GRAN % 0.100 Result Comment: IG% - Immature Granulocytes (promyelocytes, myelocytes and metamyelocytes) > 1% indicates that a LEFT SHIFT is Present. LAB L100.2620 2.0-7.7 X10 3/uL Normal Absolute Neut 7.7 LAB L100.2720 0.83-4.51 X10 3/ul Normal Absolute Lymph 2.00 Performed By: #### L100.0100 #### [facility] [address] [place], [place], [address] BASIC METABOLIC Collected: 04/28/2018 Status: F Source: [place] PROFILE (BMP) 2:45 PM [facility] REPOS[facility] TYPE CODE TESTS RESULT OUT OF RANGE REFERENCE UNITS LAB L501.0100 74-106 mg/dL High GLU 112 Result Comment: Fasting Glucose result from 100 to 125 mg/dL suggests IMPAIRED HOMEOSTASIS per A.D.A. criteria. Please note revised GLUCOSE reference range effective 2017. LAB L501.1000 7-18 mg/dL Normal BUN 17 LAB L501.1100 0.55-1.02 mg/dL High CREAT,SERUM 1.23 Result Comment: The validity of the calculated GFR AND GFRAA in patients over 70 years has not been determined. Clinical correlation is essential. LAB L501.1110 >60 mL/min Low EST GFR 45 Result Comment: Non- GFR Calc LAB L501.1115 >60 mL/min Low EST GFR - AA 55 Result Comment: GFR Calc LAB L501.1255 ml/min Normal Estimated CRCL 33.19 LAB L501.1300 10-20 RATIO Normal BUN/CRE 13.8 LAB L501.2200 8.5-10 mg/dL Normal .1 CA 9.1 LAB L501.5300 136-14 mmol/L Normal 5 NA 138 LAB L501.5600 3.5-5. mmol/L Normal 1 K 3.9 LAB L501.5900 98-107 mmol/L Normal CL 105 LAB L501.6100 21.0-3 mmol/L Normal 2.0 CO2 25.0 LAB L501.6200 5-15 Normal GAP 8 Performed By: #### L500.2500, L501.4010 #### [facility] [address] [place], [place], [address] TROPONIN-I Collected: 04/28/2018 Status: F Source: [place] 2:45 PM [facility] REPOS[facility] TYPE CODE TESTS RESULT OUT OF RANGE REFERENCE UNITS LAB L501.4010 <0.045 ng/mL Normal < 0.015 TROPONIN-I Result Comment: TROPONIN-I EXPECTED VALUES <0.045 Negative 0.045 - 0.590 Consistent with Cardiac Damage > OR = 0.600 Critical Value Not every elevated troponin is indicative of IN. These values should be used with clinical judgement in examining the patient's clinical picture for diagnosis. To establish a diagnosis of IN versus myocardial injury, there must be a demonstrated rise and/or fall in the troponin values, in addition to ischemic symptoms, EKG changes, new regional wall motion abnormality, and/or angiographical evidence. PLEASE NOTE: REFERENCE RANGES EDITED 17 Performed By: #### L500.2500, L501.4010 #### [facility] [address] [place], [address] PROTHROMBIN TIME W/INR Collected: 04/28/2018 Status: F Source: [place] 2:45 PM [facility] REPOS[facility]ORY TYPE CODE TESTS RESULT OUT OF RANGE REFERENCE UNITS LAB L300.4150 11.7-14.9 SECONDS Normal PROTIME 13.9 LAB L300.4200 Normal INR 1.1 Performed By: #### L300.3900, L300.4310 #### [facility] [address] [place], [address] PARTIAL THROMBOPLAST Collected: 04/28/2018 Status: F Source: [place] TIME 2:45 PM [facility] REPOS[facility]ORY TYPE CODE TESTS RESULT OUT OF RANGE REFERENCE UNITS LAB L300.4310 24.1-36.2 Seconds Normal PTT 27.7 Performed By: #### L300.3900, L300.4310 #### [facility] [address] [place], [address] HEMOGLOBIN A1C Collected: 04/28/2018 Status: F Source: [place] 2:45 PM [facility] REPOS[facility]ORY TYPE CODE TESTS RESULT OUT OF RANGE REFERENCE UNITS LAB L501.9985 4.2-6.3 % Normal HGB A1C 6.0 Performed By: #### L501.9985 #### [facility] [address] [place], [address] BEDSIDE GLUCOSE Collected: 04/28/2018 Status: F Source: [place] 2:27 PM [facility] REPOS[facility] TYPE CODE TESTS RESULT OUT OF RANGE REFERENCE UNITS LAB L501.080 70-110 mg/dL Normal BEDSIDE GLU 101 Result Comment: MANAGEMENT OF PATIENT CARE PER NURSING PROTOCOL Performed By: #### L501.080 #### [facility] Point of Care [address] [facility] [place] [address] T4 TOTAL, THYROXIN Collected: 04/16/2018 Status: F Source: [place] 2:20 PM [facility] RE[facility] Order Comment: Order Date: 05/26/17 Order Info: [id number] - T4 Order Info: [id number] - TSH TYPE CODE TESTS RESULT OUT OF RANGE REFERENCE UNITS LAB L501.9310 4.8-13.9 ug/dL T4 Normal THYROXIN 11.0 Performed By: #### L501.9310, L501.9520 #### [facility] [address] [place], [address] THYROID STIM HORMONE Collected: 04/16/2018 Status: F Source: JEREMY (TSH) 2:20 PM [facility] REPOSITORY Order Comment: Order Date: 05/26/17 Order Info: 3026-2 - T4 Order Info: 3016-3 - TSH TYPE CODE TESTS RESULT OUT OF RANGE REFERENCE UNITS LAB L501.9520 0.358-3.74 uIU/mL Normal TSH 1.91 Performed By: #### L501.9310, L501.9520 #### [facility] [address] [place], [address] ALLERGIES ALLERGIES DATE TYPE / CODE NAME / CODE REACTION SEVERITY SOURCE 04/28/2018 Drug No Known Unknown [facility] Allergy/4160 Allergies/F00 [facility] 84792(SNOMED [id number](RXNOR Repository CT) M) ENCOUNTERS ENCOUNTERS ADMIT/DISCHARGE ACCOUNT ADMITTING ENCOUNTER LOCATION SOURCE NUMBER CLASS 06/07/2018 [id number] [facility] ing:PT Repository 05/31/2018 [id number] [facility] ing:MFPLAB Repository 05/21/2018 [id number] Ambulatory [facility] 3 [facility] ing:SL Repository 05/05/2018 [id number] Ambulatory Jeremy [place] 5 [facility] ing:LAB Repository 04/30/2018/ [id number] Queta Veloz Inpatient Jeremy [place] 8 3 Shwetha Encounter [facility] ing:PCURoom: Repository [id number]: 1 04/30/2018 [id number] Queta Veloz Ambulatory BMSBuilding:B Jeremy 3 [place] [facility] Repository 04/30/2018 [id number] Danielleam, Queta Ambulatory BMSBuilding:B [place] 5 [place] [facility] Repository 04/30/2018/ [id number] Ambulatory BMSBuilding:W [place] 8 4 [facility] Repository 04/28/2018 [id number] Queta Veloz Ambulatory BMSBuilding:B Jeremy 4 [place] [facility] Repository 04/28/2018 [id number] Queta Veloz Ambulatory BMSBuilding:B Jeremy 1 [place] [facility] Repository 04/16/2018 [id number] Ambulatory [place] 0 [facility] ing:MFPLAB Repository PAYERS PAYERS ENCOUNTER GUARANTOR PAYER SUBSCRIBER SOURCE 06/07/2018 CASSIE Liu Primary CASSIE Luna [id number] Insurance:RAUDEL ZAMORAB: [facility] [id number] Number: Repository [id number]: 330 [id number] [phone] () Date:5661-76-22JJ [address] [address]DJ: 06/07/2018 Secondary NOT GIVENUNK [place] Insurance:SELF PAY [facility] Number: Effective Repository Date:2018-05-08 05/31/2018 CASSIE Liu Primary CASSIE Josephoster [id number] Insurance:RAUDEL NOAHB: [facility] [id number] River Medical CenterOPolkn[facility] Number: Repository [id number]: 330 [id number] [phone] () Date:1094-39-21FS [address] [place] [id number]: 05/31/2018 Secondary NOT GIVENUNK Jeremy Insurance:SELF PAY [facility] Number: Effective Repository Date:2018-05-31 05/21/2018 CASSIE Liu Primary CASSIE Liu [place] [id number] Insurance:RAUDEL WILSONDOB: [facility] [id number] [facility] Regional Medical Center Number: Repository [id number]: 330 [id number] [phone] () Date:2448-20-71CG [address] [place] [id number]: 05/21/2018 Secondary NOT GIVENUNK Jeremy Insurance:SELF PAY [facility] Number: Effective Repository Date:2018-05-01 05/05/2018 CASSIE Liu Primary CASSIE Liu [place] [id number] Insurance:RAUDEL WILSONDOB: [facility] [id number] [facility] Regional Medical Center Number: Repository [id number]: 330 [id number] [phone] () Date:8516-14-75UB [facility] [address] [place] [phone]: 05/05/2018 Secondary NOT GIVENUNK Jeremy Insurance:SELF PAY [facility] Number: Effective Repository Date:2018-05-05 04/30/2018 CASSIE Liu Primary CASSIE Liu [place] [id number] Insurance:RAUDEL WILSONDOB: [facility] [id number] [facility] Regional Medical Center Number: Repository [id number]: 330 [id number] [phone] () Date:6522-13-11JW [address] [place] [phone]: 04/30/2018 Secondary NOT GIVENUNK [place] Insurance:SELF PAY [facility] Number: Effective Repository Date:2018-04-28 04/30/2018 CASSIE Liu Primary CASSIE Liu Jeremy [id number] Insurance:RAUDEL WILSONDOB: [facility] [id number] Arkansas Regional Medical Center Number: Repository [id number]: 330 [id number] [phone] (HP) Date:9656-18-81YS [address] [place] [phone]: 04/30/2018 Secondary NOT GIVENUNK Jeremy Insurance:SELF PAY [facility] Number: Effective Repository Date:2018-04-30 04/30/2018 CASSIE C Primary CASSIE Liu [place] [id number] Insurance:RAUDEL LIYADOB: [facility] [id number] [facility] Regional Medical Center Number: Repository [id number]: 330 [id number] [phone] (HP) Date:9468-45-37JZ [facility] [place] [address]VB: 04/30/2018 Secondary NOT GIVENUNK [place] Insurance:SELF PAY [facility] Number: Effective Repository Date:2018-04-30 04/30/2018 CASSIE Liu Primary CASSIE Liu [place] [id number] Insurance:RAUDELLT LARESDOB: [facility] 1967-18-25GOSNorth [facility] Regional Medical Center Number: Repository [id number]: 330 [id number] [phone] () Date:9358-82-73ON [address] [place] [phone]: 04/30/2018 Secondary NOT GIVENUNK [place] Insurance:SELF PAY [facility] Number: Effective Repository Date:2018-04-30 04/28/2018 CASSIE Liu Primary CASSIE Liu Jeremy [id number] Insurance:RAUDELLT LARESDOB: [facility] [id number] Arkansas Regional Medical Center Number: Repository [id number]: 330 [id number] [phone] (HP) Date:6630-13-81KR [address] [place] [phone]: 04/28/2018 Secondary NOT GIVENUNK Jeremy Insurance:SELF PAY [facility] Number: Effective Repository Date:2018-04-28 04/28/2018 CASSIE Liu Primary CASSIE Luna [id number] Insurance:RAUDEL LIYADOB: [facility] [id number] Arkansas Regional Medical Center Number: Repository [id number]: 330 [id number] [phone] () Date:5445-71-97TK [address] [place] [phone]: 04/28/2018 Secondary NOT GIVENUNK Jeremy Insurance:SELF PAY [facility] Number: Effective Repository Date:2018-04-28 04/16/2018 Cassie Lares211 Insurance:RAUDEL LiyaB: [facility] [id number] [facility] Number: Repository [id number]: 330 [id number] [phone] () Date:4726-15-66VE [address] [place] [phone]: 04/16/2018 Secondary NOT GIVENUNK [place] Insurance:SELF PAY [facility] Number: Effective Repository Date:2018-04-16
== END ==
PROVIDERS: Family Provider Family Medicine; PCP Family Medicine; Visit Provider Nurse Practitioner Family
DX: E78.5 Hyperlipidemia, unspecified (principal)
CPT/HCPCS: 36415; 80053; 80061

== ENCOUNTER 2018-06-07 13:00 | Outpatient (RCR) | payer MEDICARE, SELFPAY ==
--- NOTE | 2018-05-10 12:17 | HP.OTEVAL_ITS ---
Patient's Visit Information DANNY NICKERSON is a 72 year old F, referred to Occupational Therapy by Brenda Enriquez MD, with a diagnosis of acute right occipital and thalamic infarction. Date of Evaluation: 05/10/18 Occupational Therapist: Chinyere Alberto - Subjective Subjective: Pt seen for initial occupational therapy evaluation for recent CVA acute right occipital and thalamic infarctions. Pt states over a week ago May 01, 2018. Pt states stayed in hospital 3 days then returned back home w/ spouse. Pt states lives in 2 story house with bedroom and bathroom on 2nd floor with spouse. 6 steps to enter 2 handrails. Amb no device, has cane and walker at home if needed. Independent with BADL, meal prep, driving, laundry in basement. Tub/shower with grab bars. Has shower chair starts out sitting but ends up standing to shower. Raised toilet seat with grab bar. Sleeps in regular bed. R handed. Pt states since CVA has had to use both hands to help lift things, dropped drawer on the floor and decreased strength and coordination of L hand with completing her BADLs. - Objective Objective/Observation: decreased peripheral vision L side, decreased coordination and strength L UE - ROM ROM Comments: BUE AROM WFL - Strength Hard Tile Setter Apprentice: R 50#, L 35# Lateral Pinch: R 10#, L 7# Tripod Pinch: R 8#, L 4# Strength Comments: MMT R UE 4/5, L UE 4-/5 - Edema Other: No edema - Sensation Sensation Comments: L arm tingling slightly in forearm, with increased tingling elbow to shoulder L UE. - Visual/Perceptual Skills Visual Field Cut: Yes - decreased left peripheral vision since CVA - Nine Hole Peg Right: 24.2 seconds Left: 31.5 seconds Comments: R hand dominent - DASH-Disabilities of Arm, Shoulder& Hand DASH Sum: 41 - Goals Goal:: Pt will progress w/ generalized L UE strength 4/5 to assist w/ carrying her laundry basket independently. Pt will progress w/ L hand metal products viewer strength from 35# to 50# to increase independence with meal prep tasks. Goal:: Pt will progress w/ L hand coordination and dexterity skills to manipulate all fasteners independently without extra time needed. Pt will progress w/ L hand dexterity skills to complete nine hole peg test in 28 seconds or less by d/c from OT services. Goal:: Pt will be educated on adaptive techniques, compensatory strategies to assist with decresaed L peripheral vision with good understanding and demo 100%x. Goal:: Pt will be able to cut up food with a knife with good coordination skills independently. Goal:: Pt will be educated on L UE HEP with good understanding and demo 100%x. - Rehabilitation General Assessment: Pt demo decreased coordination and strength of L hand and decreased peripheral vision of L eye limiting her independence with BADLs/IADLs and hobbies all indicating a need for skilled OT interventions to increase L UE metal products viewer/pinch strength, increase L hand coordination skills, educate on adaptive techniques, compensatory strategies to assist with decreased peripheral vision and educate on HEP L UE to increase pt's quality of life. Rehabilitation Potential: Good - Anticipated Interventions Anticipated Interventions: Strengthening, Modalities, Joint Protection/Energy Conservation, Fine Motor Coord/John, Neuro Reeducation, Visual/Perceptual Skills, ADL Training, Education re assistive Equipment, Education re Diagnosis, Home Program - Visit Plan Frequency: 1-2x /Week Duration: 4-6 Weeks General Plan: increase L UE strength, metal products viewer strength, increase coordination skills L UE, educate on adaptive tech, compensatory strategies for decreased L peripheral vision, educate on HEP L UE TEXT: Thank you for the opportunity to evaluate your patient. For Medicare and Medicare HMO plans, please review the plan of care and approve it. It will need to be FAXED BACK to us at [phone] for Medicare purposes. Please let me know if there are questions or concerns regarding this plan of care. Physician Signature: Date:
--- NOTE | 2018-05-10 13:07 | HP.PTEVAL ---
Patient's Visit Information DANNY NICKERSON is a 72 year old F referred to Physical Therapy by Brenda Enriquez MD with a diagnosis of ACUTE RIGHT OCCIPITAL AND THALAMIC INFARCTIONS. Date of Evaluation: 05/10/18 Physical Therapist: Chelsea Daniel Visit Plan Frequency: 2x /Week Duration: 4 Weeks Plan: GAIT AND BALANCE TRAINING. WRITTEN HEP. - Subjective Subjective: Work/Leisure: RETIRED. Disability: NO. Present symptoms: TINGLING IN LEFT UPPER ARM. FUNNY FEELING LEFT FOOT AND ANKLE. PRESSURE FEELING LOWER LEG AND FOOT. TINGLING AROUND MOUTH. DECRASED PERIPHERAL VISION. Present since: CVA APR 28 2018. Pain Scale: N/A. Commenced as a result of: HIGH BLOOD PRESSURE POSSIBLY. Symptoms at onset: TINGLING AROUND MOUTH. Disturbed sleep: NO INCREASED DIFFICULTY SINCE STROKE. Previous history/Previous treatment: NO PRIOR STROKES. Gait: PATIENT REPORTS HER WALKING IS NOT STABLE SINCE HAVING THE STROKE AND SHE STATES SHE CAN TELL SHE DOESN'T TRACK STRAIGHT. NO ASSISTIVE DEVICES. FALL AT NONDENOMINATIONAL BEFORE ABOUT 6 DAYS BEFORE THE STROK APR 22 2018. SHE STATES SHE REALLY ISN'T SURE HOW SHE FELL BUT SHE BANGED UP HER KNEES. SHE DOESN'T REMEMBER HITTING HER HEAD AND SHE DID NOT FX ANYTHING. Accidents: NO. Unexplained weight loss: NO. Imaging: MRI OF BRAIN APR 28 2018 - DX OF STROKE. PMH: HTN. HYPOTHYROIDISM. RA. H/O CHRONIC LOW BACK PAIN WITH CHIROPRACTIC TREATMENTS IN THE PAST. PLOF (Prior Level of Function): PATIENT REPROTS THAT BEFORE THE STROKE SHE WAS ABLE TO DRIVE AND GO WHERE SHE WANTED WHEN SHE WANTED. NO SQUATTING OR HEAVY LIFTING BEFORE THE STROKE. RESPONSIBLE FOR COOKING AND CLEANING FOR HER AND PRIOR TO STROKE. FOR THE MOST PART PATIENT REPORTS SHE JUST FEELS TIRED - MORE TIRED THAN BEFOR THE STROKE AND SHE IS SLEEPING A LOT MORE NOW THAN BEFORE THE STROKE. OTHER: PATIENT REPORTS SHE HAD A BRIEF PT ASSESSMENT IN THE HOSPITAL BUT NO PT TREATMENTS IN THE HOSPITAL AND NO HOME PT. NO EXERCISES GIVEN. - Objective PATIENT IS PLEASANT AND COOPERATIVE TO WORK WITH. SHE NEEDED EXTRA TIME TO ANSWER SOME QUESTIONS BUT SEEMED TO COMPREHEND ALL QUESTIONS JUST NEEDING TIME TO GIVE ANSWER. ORIENTATION: A & O X 3. Sitting/Standing Posture: POOR. REDUCED LORDOSIS BUT NO RELEVENT LATERAL SHIFT. Other Observations: INDEP GAIT INTO PT WITHOUT ANY ASSISTIVE DEVICES OR LOB. MILD SPASTICITY IN LEFT LE. INDEP TRANSFERS SIT TO STAND FROM CHAIR WITHOUT UE ASSIST. PATIENT IS ABLE TO SLS ON EACH LEG X APPROX 5 SEC WITHOUT UE ASSIST. SHE IS ABLE TO MAINTAIN STANDING BALANCE WITH HER EYES OPEN AND CLOSED. SHE CAN TURN 360 DEG YANA WITHOUT LOB. SHE IS UNABLE TO TANDUM WALK. Motor deficit: RIGHT LE STRENGTH 5/5 WITH MMT'ING EXCEPT HIP GRADED 4/5. LLE STRENGTH: HIP 4-/5, KNEE EXT 5/5, KNEE FLEX 5/5 AND ANKLE 5/5. Sensory deficit: YANA LE LIGHT TOUCH SENSATION APPEARS TO BE INTACT AND SYMMETRICAL. ROM deficit: YANA LE'S WFL. CORE STRENGTH: POOR. TIME UP AND GO TEST: 11.41 SECONDS INDICATING LOW RISK OF FALL. TEST PERFORMED WITHOUT ANY ASSISTIVE DEVICES OR REST. - Goals Goal 1:: INDEP AND SAFE GAIT ON ALL SURFACES TO ALLOW FOR SAFE RETURN TO PRIOR LEVEL OF FUNCTION Goal Time Frame: 2-4 Weeks Goal 2:: INDEP HEP FOR CONTINUED IMPROVEMENT ONCE FORMAL PHYSICAL THERAPY CONCLUDES Goal Time Frame: 2-4 Weeks - Rehabilitation Potential Rehabilitation Potential: Fair - Anticipated Interventions Patient/Client Instruction: Educate patient on: Condition, Plan of Care, Risk Factors, Benefits of Fitness Program For the Purpose of:: To improve self management Therapeutic Exercise to Include: Strength training, Balance training, Coordination, Gait and locomotor training, Neuromotor development For the Purpose of:: To improve muscle performance and motor function, To increase tolerance to activity/condition/position, To improve ability of physical actions for home/community/work/leisure, To improve gait and locomotor functions Thank you for the opportunity to evaluate your patient. For Medicare and Medicare HMO plans, please review the plan of care and approve it. It will need to be FAXED BACK to us at [phone] for Medicare purposes. Please let me know if there are questions or concerns regarding this plan of care. Physician Signature: Date:
--- NOTE | 2018-06-07 13:38 | HP.PTDCSUM ---
HP - PT D/C Summary It has been my pleasure to treat DANNY NICKERSON under orders from Carol Vargas MD, for the diagnosis of ACUTE RIGHT OCCIPITAL AND THALAMIC INFARCTIONS for a total of 8 visit(s). Discharge Date: 06/07/18 Please see the following information for a summary of their discharge status. - Subjective Subjective: PATIENT REPORTS SHE CAN WALK MORE ON CENTER NOW AND SHE DOESN'T HAVE ANY PROBLEM WALKING ACROSS A ROOM NOW. GOING UP AND DOWN STAIRS DOESN'T BOTHER HER BUT SHE DOES USE A HANDRAIL FOR SAFETY. PATIENT REPORTS SHE IS ABLE TO GO SHOPPING NOW BUT WAITING IN LINE IS TIRING. SHE STATES SHE IS PRETTY MUCH BACK TO DOING EVERYTHING THAT SHE DID BEFORE THE STROKE EXCEPT DRIVING AND THAT IS VISION RELATED. PATIENT REPORTS SHE ISN'T HAVING ANY PAIN AT THE MOMENT BUT HER LEFT ARM IS TINGLY. NO BACK, HIP OR LEG PAIN SURPRISINGLY. NO LONGER TAKING ANY PAIN MEDICINE. HAD SLEEP STUDY AND GOING TO START A SLEEPING PILL. NOT FEELING LIKE LEFT SOCK IS FALLING DOWN TODAY AND PATIENT IS GLAD. - Pain LEFT UPPER ARM Pain Intensity (Out of 10): Unrated RIGHT HIP Pain Intensity (Out of 10): 0 - Overall Improvement % Improvement: 75 - Objective Objective/Function: PATIENT IS PLEASANT AND COOPERATIVE TO WORK WITH. SHE HAS MADE GOOD PROGRESS TOWARD ALL PT GOALS DEMONSTRATING IMPROVED BALANCE, GAIT AND STAMINA. SHE IS INDEP WITH A HEP. SHE NEEDED A LITTLE EXTRA TIME TO ANSWER SOME QUESTIONS BUT SEEMED TO COMPREHEND ALL QUESTIONS JUST NEEDING TIME TO GIVE ANSWER ALTHOUGH IMPROVED FROM EVAL. ORIENTATION: A & O X 3. Sitting/Standing Posture: FAIR. REDUCED LORDOSIS BUT NO RELEVENT LATERAL SHIFT. Other Observations: INDEP GAIT INTO PT WITHOUT ANY ASSISTIVE DEVICES OR LOB. MILD SPASTICITY IN LEFT LE. INDEP TRANSFERS SIT TO STAND FROM CHAIR WITHOUT UE ASSIST. PATIENT IS ABLE TO SLS ON EACH LEG X APPROX 10 SEC WITHOUT UE ASSIST NOW. SHE IS ABLE TO MAINTAIN STANDING BALANCE WITH HER EYES OPEN AND CLOSED. SHE CAN TURN 360 DEG YANA WITHOUT LOB. SHE IS ABLE TO TANDUM WALK NOW SHORT DISTANCES. Motor deficit: YANA LE'S 5/5 WITH MMT'ING EXCEPT A LITTLE WEAKNESS NOTED IN BOTH HIPS. PATIENT REPORTS HER HIPS DO NOT FEEL WEAK TO HER. Sensory deficit: YANA LE LIGHT TOUCH SENSATION APPEARS TO BE INTACT AND SYMMETRICAL. ROM deficit: YANA LE'S WFL. CORE STRENGTH: POOR. TIME UP AND GO TEST: 7.6 SECONDS INDICATING LOW RISK OF FALL. TEST PERFORMED WITHOUT ANY ASSISTIVE DEVICES OR REST. LEFS HAS IMPROVED FROM 51 TO 61. - Goals Goal 1:: INDEP AND SAFE GAIT ON ALL SURFACES TO ALLOW FOR SAFE RETURN TO PRIOR LEVEL OF FUNCTION Goal 2:: INDEP HEP FOR CONTINUED IMPROVEMENT ONCE FORMAL PHYSICAL THERAPY CONCLUDES Goal Progress: Goal Met - Plan Plan: D/C. PATIENT AGREEABLE. - D/C Information If there are questions or concerns regarding this patient's physical therapy, please feel free to call me at [phone]. Thank you for the referral of this patient. Sincerely, Chelsea Rodríguez
--- NOTE | 2018-11-08 09:55 | HP.OTDCSUM ---
HP - OT D/C Summary It has been my pleasure to treat DANNY NICKERSON under orders from Carol Vargas MD, for the diagnosis of acute right occipital and thalamic infarction for a total of 8 visit(s). Please see the following information for a summary of their discharge status. - Objective Objective/Function: increase coordination and strength L UE - Goals Patient Goals: Regain Strength, Improve Fine Motor Skills, Use Hand/Wrist/Arm Normally Again, Decrease Tingling/Numbness, Be More Independent in ADLS, Improve Visual/Perceptual Skills, Resume Former Household Responsibilities (Cooking,Cleaning,Yard, etc.), Resume Hobbies Goal:: Pt will progress w/ generalized L UE strength 4/5 to assist w/ carrying her laundry basket independently. Pt will progress w/ L hand compensation specialist strength from 35# to 50# to increase independence with meal prep tasks. Goal:: Pt will progress w/ L hand coordination and dexterity skills to manipulate all fasteners independently without extra time needed. Pt will progress w/ L hand dexterity skills to complete nine hole peg test in 28 seconds or less by d/c from OT services. Goal:: Pt will be educated on adaptive techniques, compensatory strategies to assist with decresaed L peripheral vision with good understanding and demo 100%x. Goal:: Pt will be able to cut up food with a knife with good coordination skills independently. Goal:: Pt will be educated on L UE HEP with good understanding and demo 100%x. - Plan Plan: d/c OT POC - D/C Information Discharge Comments: Pt has made good progress with OT goals. Pt has progressd with her coordination skills of L hand and completed nine hole peg test L hand 28 seconds. She has progressed w/ L hand compensation specialist strength 40# and L UE MMT 4/5. Pt has been educated on energy conservation techniques and compensatory strategies for L UE and decreased L peripheral vision. Pt has been educated on L UE HEP and demo good understanding. Pt no longer requires skilled OT services and d/c OT services at this time. If there are questions or concerns regarding this patient's occupational therapy, please fell free to call me at [phone]. Thank you for the referral of this patient. Sincerely, Chinyere Alberto
== END 2018-06-07 19:00 | disposition home or self-care (01) ==
LOC: PT 13:00
PROVIDERS: Family Provider Family Medicine; PCP Family Medicine; Visit Provider Family Medicine
DX: Z86.73 Personal history of transient ischemic attack (TIA), and cerebral infarction without residual deficits (principal)
CPT/HCPCS: 97110; 97116; 97140; 97162; 97166; 97530

== ENCOUNTER → 2018-07-02 10:34 | Outpatient (CLI) | payer MEDICARE, SELFPAY ==
[2018-07-02 12:47] LABS: AST(SGOT) 28 U/L (15-37); Alanine Aminotransfer ALT/SGPT 46 U/L (13-56); Cholesterol 181 mg/dL (200); High Density Lipoprotein 52 mg/dL; Triglycerides 115 mg/dL; Very Low Density Lipoprotein 23 mg/dL (5-40)
== END ==
PROVIDERS: Family Provider Family Medicine; PCP Family Medicine; Visit Provider Family Medicine
DX: E78.5 Hyperlipidemia, unspecified (principal)
CPT/HCPCS: 36415; 80061; 84450; 84460

== ENCOUNTER → 2019-08-21 11:05 | Outpatient (CLI) | payer MEDICARE, SELFPAY ==
[2019-08-21 13:17] LABS: AST(SGOT) 19 U/L (15-37); Alanine Aminotransfer ALT/SGPT 28 U/L (13-56); Anion Gap 7 (5-15); BUN 17 mg/dL (7-18); BUN/Creat Ratio 14.9 RATIO (10-20); Calcium,Total 9.3 mg/dL (8.5-10.1); Chloride 110 mmol/L (98-107); Cholesterol 209 mg/dL (200); Creatinine, Serum 1.14 mg/dL (0.55-1.02); EST Glomerular Filtration Rate 49 mL/min (>60); Est Glom Filt Rate - Afr Amer 60 mL/min (>60); Glucose 100 mg/dL (74-106); High Density Lipoprotein 64 mg/dL; Potassium 4.6 mmol/L (3.5-5.1); Sodium Level 141 mmol/L (136-145); T4 Total, Thyroxin 10.9 ug/dL (4.8-13.9); Thyroid Stim Hormone (TSH) 1.75 uIU/mL (0.358-3.74); Triglycerides 92 mg/dL; Very Low Density Lipoprotein 18 mg/dL (5-40)
== END ==
PROVIDERS: PCP Family Medicine; Referring Provider Family Medicine; Visit Provider Family Medicine
DX: I10 Essential (primary) hypertension (principal); E78.5 Hyperlipidemia, unspecified; E03.9 Hypothyroidism, unspecified
CPT/HCPCS: 36415; 80048; 80061; 84436; 84443; 84450; 84460

== ENCOUNTER → 2020-09-02 10:56 | Outpatient (CLI) | payer MEDICARE, SELFPAY ==
[2020-09-02 13:05] LABS: AST(SGOT) 19 U/L (15-37); Alanine Aminotransfer ALT/SGPT 25 U/L (13-56); Anion Gap 6 (5-15); BUN 18 mg/dL (7-18); BUN/Creat Ratio 14.3 RATIO (10-20); Calcium,Total 9.2 mg/dL (8.5-10.1); Chloride 109 mmol/L (98-107); Cholesterol 215 mg/dL (200); Creatinine, Serum 1.26 mg/dL (0.55-1.02); EST Glomerular Filtration Rate 44 mL/min (>60); Est Glom Filt Rate - Afr Amer 53 mL/min (>60); Glucose 100 mg/dL (74-106); High Density Lipoprotein 72 mg/dL; Potassium 4.3 mmol/L (3.5-5.1); Sodium Level 140 mmol/L (136-145); T4 Total, Thyroxin 10.8 ug/dL (4.8-13.9); Thyroid Stim Hormone (TSH) 2.46 uIU/mL (0.358-3.74); Triglycerides 70 mg/dL; Very Low Density Lipoprotein 14 mg/dL (5-40)
== END ==
PROVIDERS: PCP Family Medicine; Referring Provider Family Medicine; Visit Provider Family Medicine
DX: I10 Essential (primary) hypertension (principal); E03.9 Hypothyroidism, unspecified; E78.5 Hyperlipidemia, unspecified
CPT/HCPCS: 36415; 80048; 80061; 84436; 84443; 84450; 84460

== ENCOUNTER 2021-09-06 11:34 | Outpatient (CLI) | payer MEDICARE, SELFPAY ==
[2021-09-06 15:55] LABS: AST(SGOT) 22 U/L (15-37); Alanine Aminotransfer ALT/SGPT 30 U/L (13-56); Anion Gap 6 (5-15); BUN 17 mg/dL (7-18); BUN/Creat Ratio 13.5 RATIO (10-20); Calcium,Total 9.1 mg/dL (8.5-10.1); Chloride 111 mmol/L (98-107); Cholesterol 214 mg/dL (200); Creatinine, Serum 1.26 mg/dL (0.55-1.02); EST Glomerular Filtration Rate 44 mL/min (>60); Est Glom Filt Rate - Afr Amer 53 mL/min (>60); Glucose 106 mg/dL (74-106); High Density Lipoprotein 55 mg/dL; Potassium 4.2 mmol/L (3.5-5.1); Sodium Level 139 mmol/L (136-145); T4 Total, Thyroxin 9.7 ug/dL (4.8-13.9); Thyroid Stim Hormone (TSH) 1.82 uIU/mL (0.358-3.74); Triglycerides 108 mg/dL; Very Low Density Lipoprotein 22 mg/dL (5-40)
== END 2021-09-06 23:59 | disposition home or self-care (01) ==
LOC: MFPLAB 11:38
PROVIDERS: PCP Family Medicine; Visit Provider Family Medicine
DX: E78.5 Hyperlipidemia, unspecified (principal); I10 Essential (primary) hypertension; E03.9 Hypothyroidism, unspecified
CPT/HCPCS: 36415; 80048; 80061; 84436; 84443; 84450; 84460

== ENCOUNTER → 2023-03-21 | Outpatient (CLI) | payer MEDICARE, SELFPAY ==
[2023-03-21 18:05] LABS: AST(SGOT) 22 U/L (15-37); Alanine Aminotransfer ALT/SGPT 30 U/L (13-56); Anion Gap 6 (5-15); BUN 15 mg/dL (7-18); BUN/Creat Ratio 13.5 RATIO (10-20); Calcium,Total 9.6 mg/dL (8.5-10.1); Chloride 104 mmol/L (98-107); Cholesterol 206 mg/dL (200); Creatinine, Serum 1.11 mg/dL (0.55-1.02); EST Glomerular Filtration Rate 50 mL/min (>60); Est Glom Filt Rate - Afr Amer 61 mL/min (>60); Glucose 93 mg/dL (74-106); High Density Lipoprotein 78 mg/dL; Potassium 4.5 mmol/L (3.5-5.1); Sodium Level 135 mmol/L (136-145); Thyroid Stim Hormone (TSH) 2.35 uIU/mL (0.358-3.74); Triglycerides 81 mg/dL; Very Low Density Lipoprotein 16 mg/dL (5-40)
== END | disposition home or self-care (01) ==
LOC: MFPLAB 11:30
PROVIDERS: PCP Family Medicine; Visit Provider Family Medicine
DX: E03.9 Hypothyroidism, unspecified (principal); E78.5 Hyperlipidemia, unspecified; I10 Essential (primary) hypertension
CPT/HCPCS: 36415; 80048; 80061; 84436; 84443; 84450; 84460

== ENCOUNTER → 2024-03-25 | Outpatient (CLI) | payer MEDICARE, SELFPAY ==
[2024-03-25 18:43] LABS: AST(SGOT) 20 U/L (15-37); Alanine Aminotransfer ALT/SGPT 20 U/L (13-56); Anion Gap 9 (5-15); BUN 16 mg/dL (7-18); BUN/Creat Ratio 14.7 RATIO (10-20); Calcium,Total 9.5 mg/dL (8.5-10.1); Chloride 102 mmol/L (98-107); Cholesterol 205 mg/dL (200); Creatinine, Serum 1.09 mg/dL (0.55-1.02); EST Glomerular Filtration Rate 51 mL/min (>60); Est Glom Filt Rate - Afr Amer 62 mL/min (>60); Glucose 91 mg/dL (74-106); High Density Lipoprotein 63 mg/dL; Potassium 4.6 mmol/L (3.5-5.1); Sodium Level 133 mmol/L (136-145); T4 Total, Thyroxin 9.9 ug/dL (4.8-13.9); Triglycerides 116 mg/dL; Very Low Density Lipoprotein 23 mg/dL (5-40)
== END | disposition home or self-care (01) ==
LOC: MFPLAB 14:08
PROVIDERS: PCP Family Medicine; Visit Provider Family Medicine
DX: E78.5 Hyperlipidemia, unspecified (principal); I10 Essential (primary) hypertension; E03.9 Hypothyroidism, unspecified
CPT/HCPCS: 36415; 80048; 80061; 84436; 84443; 84450; 84460

== ENCOUNTER → 2024-10-01 | Outpatient (CLI) | payer MEDICARE, SELFPAY ==
[2024-10-01 21:43] LABS: AST(SGOT) 24 U/L (<=31); Alanine Aminotransfer ALT/SGPT 16 U/L (<=34); Anion Gap 13 (5-15); BUN 16 mg/dL (4-19); BUN/Creat Ratio 14.1 RATIO (10-20); Calcium,Total 9.8 mg/dL (7.6-11.0); Carbon Dioxide 21.8 mmol/L (21.0-32.0); Chloride 108 mmol/L (98-108); Cholesterol 202 mg/dL (<=200); Creatinine, Serum 1.15 mg/dL (0.70-1.20); EST Glomerular Filtration Rate 48 (>60); Glucose 79 mg/dL (70-99); High Density Lipoprotein 59 mg/dL; Low Density Lipoprotein Calc. 123 mg/dL; Potassium 4.3 mmol/L (3.3-5.1); Sodium Level 142 mmol/L (133-145); T4 Total, Thyroxin 8.2 ug/dL (4.8-13.9); Triglycerides 102 mg/dL; Very Low Density Lipoprotein 20 mg/dL (5-40); cholesterol:hdl ratio screen 3.44
== END | disposition home or self-care (01) ==
LOC: MTLAB 14:56
PROVIDERS: PCP Family Medicine; Referring Provider Family Medicine; Visit Provider Family Medicine
DX: I10 Essential (primary) hypertension (principal); E03.9 Hypothyroidism, unspecified; E78.5 Hyperlipidemia, unspecified
CPT/HCPCS: 36415; 80048; 80061; 84436; 84443; 84450; 84460

== ENCOUNTER → 2025-04-02 | Outpatient (CLI) | payer MEDICARE, SELFPAY ==
[2025-04-02 13:10] LABS: Creatinine, Urine (random) 137.00 mg/dL (28.00-217.00); Microalbumin,Random Urine 49.9 mg/L (<20 mg/L)
[2025-04-02 13:19] LABS: AST(SGOT) 25 U/L (<=31); Alanine Aminotransfer ALT/SGPT 16 U/L (<=34); Albumin, Serum 4.0 g/dL (3.4-4.8); Alkaline Phosphatase 86 U/L (35-104); Anion Gap 13 (5-15); BUN 14 mg/dL (4-19); BUN/Creat Ratio 12.1 RATIO (10-20); Calcium,Total 9.3 mg/dL (7.6-11.0); Carbon Dioxide 20.7 mmol/L (21.0-32.0); Chloride 104 mmol/L (98-108); Globulin 2.5 g/dL (2.2-4.2); Glucose 113 mg/dL (70-99); Potassium 4.3 mmol/L (3.3-5.1)
== END | disposition home or self-care (01) ==
LOC: MFPLAB 11:05
PROVIDERS: PCP Family Medicine; Visit Provider Nurse Practitioner Family
DX: E03.9 Hypothyroidism, unspecified (principal); I10 Essential (primary) hypertension
CPT/HCPCS: 36415; 80053; 82043; 82570; 84443